=== PATIENT | male | born 1935 | race Caucasian/White ===

== ENCOUNTER 2017-08-23 18:57 | Inpatient (IN) | payer MEDICARE ==
[2017-08-23] MEDS ORDERED: IPRATROPIUM/ALBUTEROL 0.5-2.5 MG/3 ML AMPUL NEB ONE (19:05)
[2017-08-23 19:20] LABS: HEMATOCRIT 50.3 % (37.9-51.0); HEMOGLOBIN 16.2 g/dL (13.5-17.0); MEAN CORPUSCULAR HEMOGLOBIN 33.4 pg (27.0-33.4); MEAN CORPUSCULAR HGB CONC 32.2 g/dL (32.0-36.0); MEAN CORPUSCULAR VOLUME 104 fl (80-97); PLATELET COUNT 131 10^3/uL (150-450); RED BLOOD COUNT 4.86 10^6/uL (4.35-5.55); RED CELL DISTRIBUTION WIDTH 17.6 % (11.5-14.0); WHITE BLOOD COUNT 8.4 10^3/uL (4.0-10.5)
--- NOTE | 2017-08-23 19:22 | ER Document Report ---
ED General - General Stated Complaint: BREATHING PROBLEMS Time Seen by Provider: 08/23/17 19:05 Mode of Arrival: Medic Information source: Patient, Emergency Med Personnel Notes: 81-year-old male history of CHF COPD A. fib presents with complaints of shortness of breath patient denies any fevers or chills he has been short of breath for the past 5 days patient found satting 88% on room air by EMS given 1 DuoNeb one albuterol treatment in 125 Solu-Medrol prior to arrival - HPI Onset: Last week Onset/Duration: Persistent Quality of pain: No pain Severity: Moderate Pain Level: Denies Associated symptoms: Nonproductive cough, Shortness of breath Exacerbated by: Movement, Walking Relieved by: Denies Similar symptoms previously: Yes Recently seen / treated by doctor: No - Related Data Allergies/Adverse Reactions: Penicillins Allergy (Unknown, Verified 11/09/11 11:09) Past Medical History - Social History Smoking Status: Unknown if Ever Smoked Cigarette use (# per day): No Chew tobacco use (# tins/day): No Smoking Education Provided: No Family History: Reviewed & Not Pertinent - Past Medical History Cardiac Medical History: Reports: Hx Hypercholesterolemia, Hx Hypertension Endocrine Medical History: Reports: Hx Diabetes Mellitus Type 2 Review of Systems - Review of Systems Notes: REVIEW OF SYSTEMS: CONSTITUTIONAL : Denies fever, chills, or sweats. Denies recent illness. EENT: Denies eye, ear, throat, or mouth pain or symptoms. Denies nasal or sinus congestion or discharge. Denies throat, tongue, or mouth swelling or difficulty swallowing. CARDIOVASCULAR: Denies chest pain. Denies palpitations or racing or irregular heart beat. Denies ankle edema. RESPIRATORY: Admits shortness of breath difficulty breathing GASTROINTESTINAL: Denies abdominal pain or distention. Denies nausea, vomiting , or diarrhea. Denies blood in vomitus, stools, or per rectum. Denies black, tarry stools. Denies constipation. GENITOURINARY: Denies difficulty urinating, painful urination, burning, frequency, blood in urine, or discharge. MUSCULOSKELETAL: Denies back or neck pain or stiffness. Denies joint pain or swelling. SKIN: Denies rash, lesions or sores. HEMATOLOGIC : Denies easy bruising or bleeding. LYMPHATIC: Denies swollen, enlarged glands. NEUROLOGICAL: Denies confusion or altered mental status. Denies passing out or loss of consciousness. Denies dizziness or lightheadedness. Denies headache. Denies weakness or paralysis or loss of use of either side. Denies problems with gait or speech. Denies sensory loss, numbness, or tingling. Denies seizures. PSYCHIATRIC: Denies anxiety or stress. Denies depression, suicidal ideation, or homicidal ideation. ALL OTHER SYSTEMS REVIEWED AND NEGATIVE. Dictation was performed using [employer] Direct voice recognition software PHYSICAL EXAMINATION: GENERAL: Well-appearing, well-nourished and in no acute distress. HEAD: Atraumatic, normocephalic. EYES: Pupils equal round and reactive to light, extraocular movements intact, sclera anicteric, conjunctiva are normal. ENT: Nares patent, oropharynx clear without exudates. Moist mucous membranes. NECK: Normal range of motion, supple without lymphadenopathy LUNGS: Coarse inspiratory expiratory wheezing all throughout HEART: Irregular rate rhythm ABDOMEN: abdomen enlarged but not distended. Musculoskeletal: Normal range of motion, no pitting or edema. No cyanosis. NEUROLOGICAL: Cranial nerves grossly intact. Normal speech, normal gait. Normal sensory, motor exams PSYCH: Normal mood, normal affect. SKIN: Warm, Dry, normal turgor, no rashes or lesions noted. Physical Exam - Vital signs Vitals: Pulse Ox 90 L 08/23/17 19:02 Course - Re-evaluation Re-evalutation: 08/23/17 20:35 Patient's presentation most consistent with CHF COPD 08/23/17 20:36 Patient's chest x-ray notes no significant abnormality, there was elevation of the BNP 08/23/17 21:22 Patient's breathing is stable with oxygen on at rest however my concerns are when he ambulates and becomes hypoxic therefore I will observe the patient by hospitalist service for evaluation of his COPD CHF exacerbation - Vital Signs Vital signs: Temp Pulse Resp BP Pulse Ox 98.6 F 30 H 116/64 93 08/23/17 19:45 08/23/17 21:01 08/23/17 21:00 08/23/17 21:01 - Laboratory Result Diagrams: 08/23/17 19:00 08/23/17 19:00 Laboratory results interpreted by me: 08/23/17 08/23/17 08/23/17 19:00 19:00 19:00 MCV 104 H RDW 17.6 H Plt Count 131 L Sodium 149.0 H Potassium 5.4 H Carbon Dioxide 33 H BUN 41 H Creatinine 1.45 H Est GFR ( Amer) 57 L Est GFR (Non-Af Amer) 47 L Glucose 158 H NT-Pro-B Natriuret Pep 6050 H Urine Protein Urine Blood Urine Urobilinogen 08/23/17 20:01 MCV RDW Plt Count Sodium Potassium Carbon Dioxide BUN Creatinine Est GFR ( Amer) Est GFR (Non-Af Amer) Glucose NT-Pro-B Natriuret Pep Urine Protein 100 H Urine Blood SMALL H Urine Urobilinogen 2.0 H - Diagnostic Test Radiology reviewed: Image reviewed - Chest x-ray notes no significant abnormality, Reports reviewed - EKG Interpretation by Me EKG shows normal: [place], QRS Complexes, ST-T Waves Rhythm: A.Fib When compared to previous EKG there are: No significant change Discharge - Discharge Clinical Impression: Hypoxemia COPD (chronic obstructive pulmonary disease) Qualifiers: COPD type: unspecified COPD Qualified Code(s): J44.9 - Chronic obstructive pulmonary disease, unspecified CHF (congestive heart failure) Qualifiers: Heart failure type: unspecified Heart failure chronicity: unspecified Qualified Code(s): I50.9 - Heart failure, unspecified Afib Qualifiers: Atrial fibrillation type: chronic Qualified Code(s): I48.2 - Chronic atrial fibrillation Condition: Stable Disposition: ADMITTED INPATIENT Admitting Provider: Hospitalist Unit Admitted: Telemetry
--- NOTE | 2017-08-23 19:23 | RADIOLOGY REPORT (SQ) ---
EXAM DESCRIPTION: CHEST SINGLE VIEW COMPLETED DATE/TIME: 08/23/2017 7:16 pm REASON FOR STUDY: dyspnea COMPARISON: 11/09/2011 EXAM PARAMETERS: NUMBER OF VIEWS: One view. TECHNIQUE: Single frontal radiographic view of the chest acquired. RADIATION DOSE: NA LIMITATIONS: None. FINDINGS: LUNGS AND PLEURA: Stable chronic lung change without new opacities, masses or pneumothorax . No pleural effusion. MEDIASTINUM AND HILAR STRUCTURES: No masses. Contour normal. HEART AND VASCULAR STRUCTURES: Heart stable in size. Normal vasculature. BONES: No acute findings. HARDWARE: None in the chest. OTHER: No other significant finding. IMPRESSION: NO ACUTE RADIOGRAPHIC FINDING IN THE CHEST. NO SIGNIFICANT CHANGE FROM PRIOR STUDY. TECHNICAL DOCUMENTATION: JOB ID: [id number] [employer]- All Rights Reserved Reading location - IP/workstation name: [email or web address]
[2017-08-23 19:32] LABS: ALANINE AMINOTRANSFERASE 39 U/L (21-72); ALBUMIN 4.4 g/dL (3.5-5.0); ALKALINE PHOSPHATASE 66 U/L (38-126); ANION GAP 12 (5-19); ASPARTATE AMINO TRANSFERASE 39 U/L (17-59); BILIRUBIN,DIRECT 0.3 mg/dL (0.0-0.4); BILIRUBIN,TOTAL 0.5 mg/dL (0.2-1.3); BLOOD UREA NITROGEN 41 mg/dL (7-20); CALCIUM 9.6 mg/dL (8.4-10.2); CARBON DIOXIDE 33 mmol/L (22-30); CHLORIDE 104 mmol/L (98-107); CREATINE KINASE 65 U/L (55-170); GLUCOSE 158 mg/dL (75-110); POTASSIUM 5.4 mmol/L (3.6-5.0); TOTAL PROTEIN 7.8 g/dL (6.3-8.2)
[2017-08-23 19:42] LABS: ABSOLUTE LYMPHOCYTES# (MANUAL) 1.3 10^3/uL (0.5-4.7); ABSOLUTE MONOCYTES # (MANUAL) 0.7 10^3/uL (0.1-1.4); ABSOLUTE NEUTROPHILS# (MANUAL) 6.4 10^3/uL (1.7-8.2); BASOPHILS % (MANUAL) 1 % (0-2); EOSINOPHILS % (MANUAL) 0 % (0-6); LYMPHOCYTES % (MANUAL) 15 % (13-45); MONOCYTES % (MANUAL) 8 % (3-13); SEGMENTED NEUTROPHILS % (MAN) 76 % (42-78); TOTAL CELLS COUNTED 100
[2017-08-23 19:43] LABS: ANISOCYTOSIS 1+; OVALOCYTES SLIGHT; PLATELET COMMENT DECREASED; POIKILOCYTOSIS SLIGHT; POLYCHROMASIA SLIGHT
[2017-08-23 19:44] LABS: CREATINE KINASE MB 3.37 ng/mL (<4.55); TROPONIN I 0.029 ng/mL
--- NOTE | 2017-08-23 20:00 | EKG REPORT ---
SEVERITY:- ABNORMAL ECG - ATRIAL FIBRILLATION, V-RATE 61-115 RIGHT BUNDLE BRANCH BLOCK BORDERLINE ST DEPRESSION, LATERAL LEADS : Confirmed by: Freida Perez MD 23-Aug-2017 19:59:11
[2017-08-23 20:16] LABS: APPEARANCE,URINE CLEAR; BILIRUBIN,URINE NEGATIVE (NEGATIVE); COLOR,URINE YELLOW; GLUCOSE, URINE NEGATIVE (NEGATIVE); KETONES,URINE NEGATIVE (NEGATIVE); LEUKOCYTE ESTERASE,URINE NEGATIVE (NEGATIVE); NITRITE,URINE NEGATIVE (NEGATIVE); PROTEIN,URINE 100 mg/dL (NEGATIVE)
[2017-08-23] MEDS ORDERED: ONDANSETRON 4 MG TAB.RAPDIS PO PRN (21:30)
[2017-08-23] MEDS ORDERED: DOXYCYCLINE HYCLATE INJ 100 MG VIAL IV ONE (21:35)
[2017-08-23] MEDS ORDERED: FUROSEMIDE INJ/PF 40 MG/4 ML SDV IV ONE (22:15)
[2017-08-23] MEDS ORDERED: SODIUM POLYSTYRENE SULFONATE 15 GM/60 ML PO ONE (22:38)
--- NOTE | 2017-08-23 22:48 | PDOC H&P ---
History of Present Illness Admission Date/PCP: 08/23/17 21:12 History of Present Illness: SANTO EATON is a 81 year old male patient with past medical history of HLD, COPD, hypertension, diabetes mellitus, legally blind and atrial fibrillation, patient brought by EMS for shortness of breath. When EMS checked his O2 saturation it was lower 80s. I got limited history because of patient's poor historian. His initial blood work shows hyponatremia with sodium of 149, hyperkalemia potassium of 5.4 and his creatinine is 1.45 with GFR of 47. There is no report of fever chills cough chest pain palpitation or diaphoresis. Past Medical History Cardiac Medical History: Reports: Hyperlipidema, Hypertension Endocrine Medical History: Reports: Diabetes Mellitus Type 2 Social History Smoking Status: Current Every Day Smoker Frequency of Alcohol Use: None Hx Recreational Drug Use: No Drugs: None - Advance Directive Resuscitation Status: Full Code Family History Family History: Reviewed & Not Pertinent Parental Family History Reviewed: Yes Children Family History Reviewed: Yes Sibling(s) Family History Reviewed.: Yes Medication/Allergy Home Medications: Aspirin [Aspirin 325 mg Tablet] 325 mg PO DAILY 08/23/17 Losartan Potassium [Cozaar 50 mg Tablet] 50 mg PO DAILY 08/23/17 Metoprolol Tartrate [Lopressor 50 mg Tablet] 50 mg PO Q12 08/23/17 Simvastatin [Zocor 20 mg Tablet] 20 mg PO QHS 08/23/17 Allergies/Adverse Reactions: Penicillins Allergy (Unknown, Verified 11/09/11 11:09) Review of Systems Constitutional: PRESENT: as per HPI Eyes: PRESENT: as per HPI Ears: PRESENT: as per HPI Cardiovascular: PRESENT: as per HPI Respiratory: PRESENT: as per HPI Gastrointestinal: PRESENT: as per HPI Neurological: PRESENT: as per HPI Physical Exam Vital Signs: Temp Pulse Resp BP Pulse Ox 98.6 F 30 H 116/64 93 08/23/17 19:45 08/23/17 21:01 08/23/17 21:00 08/23/17 21:01 General appearance: PRESENT: disheveled, mild distress Head exam: PRESENT: atraumatic, normocephalic Neck exam: ABSENT: carotid bruit, JVD, lymphadenopathy, thyromegaly Cardiovascular exam: PRESENT: irregular rhythm GI/Abdominal exam: PRESENT: other - Obese abdomen Neurological exam: PRESENT: alert, awake Psychiatric exam: PRESENT: normal mood Results Impressions: Chest X-Ray 08/23/17 19:05 IMPRESSION: NO ACUTE RADIOGRAPHIC FINDING IN THE CHEST. NO SIGNIFICANT CHANGE FROM PRIOR STUDY. Assessment & Plan - Diagnosis (1) COPD exacerbation Is this a current diagnosis for this admission?: Yes Plan: Patient has been started on supplemental oxygen, bronchodilators and Solu- Medrol. (2) A-fib Is this a current diagnosis for this admission?: Yes Plan: Rate controlled. Patient is not on anticoagulation. (3) Type 2 diabetes mellitus Is this a current diagnosis for this admission?: Yes Plan: On sliding scale and will continue his home medications. - Inpatient Certification Medical Necessity: Need Close Monitoring Due to Risk of Patient Decompensation, Need for IV Antibiotics
[2017-08-23] MEDS: METHYLPREDNISOLONE INJ 40 MG/1 ML SDV IV SCH (22:56)
[2017-08-23] MEDS: DOXYCYCLINE HYCLATE 100 MG in DEXTROSE 5%-WATER 250 ML IV SCH (22:57)
[2017-08-23] MEDS: HEPARIN SOD (PORCINE) 5,000 UNIT/ML 1 ML SYRINGE SUBCUT SCH (22:58)
[2017-08-23] MEDS: METOPROLOL TARTRATE 50 MG TABLET PO SCH (22:58)
[2017-08-23] MEDS: SIMVASTATIN 10 MG TABLET PO SCH (22:58)
[2017-08-23] MEDS: IPRATROPIUM/ALBUTEROL 0.5-2.5 MG/3 ML AMPUL NEB SCH (23:02)
[2017-08-24] MEDS ORDERED: SODIUM POLYSTYRENE SULFONATE 15 GM/60 ML ONE (02:48)
[2017-08-24] MEDS: IPRATROPIUM/ALBUTEROL 0.5-2.5 MG/3 ML AMPUL NEB SCH ×5 (04:28→19:37)
[2017-08-24] MEDS: FUROSEMIDE INJ/PF 40 MG/4 ML SDV IV SCH ×2 (04:54→17:37)
[2017-08-24] MEDS: LANSOPRAZOLE 30 MG TAB.RAP.DR PO SCH (04:54)
[2017-08-24] MEDS: HEPARIN SOD (PORCINE) 5,000 UNIT/ML 1 ML SYRINGE SUBCUT SCH ×3 (04:54→21:27)
[2017-08-24] MEDS: METHYLPREDNISOLONE INJ 40 MG/1 ML SDV IV SCH ×2 (04:55→14:43)
[2017-08-24] MEDS ORDERED: DEXTROSE 50%-WATER SYRINGE 25 GM/50 ML DOSE IV PRN (06:45)
[2017-08-24] MEDS ORDERED: DEXTROSE 50%-WATER SYRINGE 12.5 GM/25 ML DOSE IV PRN (06:45)
[2017-08-24] MEDS ORDERED: INSULIN LISPRO 100 UNIT/ML 3 ML VIAL SUBCUT PRN (06:45)
[2017-08-24] MEDS ORDERED: DEXTROSE 40% GEL 15 GM TUBE X 2 PO PRN (06:45)
[2017-08-24] MEDS ORDERED: GLUCAGON,HUMAN RECOMB 1 MG INJ IM PRN (06:45)
[2017-08-24] MEDS ORDERED: DEXTROSE 40% GEL 15 GM TUBE PO PRN (06:45)
[2017-08-24 07:18] LABS: HEMATOCRIT 47.2 % (37.9-51.0); HEMOGLOBIN 15.4 g/dL (13.5-17.0); MEAN CORPUSCULAR HEMOGLOBIN 33.9 pg (27.0-33.4); MEAN CORPUSCULAR HGB CONC 32.6 g/dL (32.0-36.0); MEAN CORPUSCULAR VOLUME 104 fl (80-97); PLATELET COUNT 127 10^3/uL (150-450); RED BLOOD COUNT 4.53 10^6/uL (4.35-5.55); RED CELL DISTRIBUTION WIDTH 17.4 % (11.5-14.0); WHITE BLOOD COUNT 5.2 10^3/uL (4.0-10.5)
[2017-08-24 07:38] LABS: ANION GAP 13 (5-19); BLOOD UREA NITROGEN 46 mg/dL (7-20); CALCIUM 9.2 mg/dL (8.4-10.2); CARBON DIOXIDE 31 mmol/L (22-30); CHLORIDE 102 mmol/L (98-107); GLUCOSE 218 mg/dL (75-110); POTASSIUM 5.1 mmol/L (3.6-5.0); SODIUM 146.3 mmol/L (137-145)
[2017-08-24 08:00] LABS: ABSOLUTE LYMPHOCYTES# (MANUAL) 0.2 10^3/uL (0.5-4.7); ABSOLUTE MONOCYTES # (MANUAL) 0.1 10^3/uL (0.1-1.4); BAND NEUTROPHILS % (MANUAL) 1 % (3-5); BASOPHILS % (MANUAL) 0 % (0-2); EOSINOPHILS % (MANUAL) 0 % (0-6); LYMPHOCYTES % (MANUAL) 3 % (13-45); MONOCYTES % (MANUAL) 1 % (3-13); NUCLEATED RED BLOOD CELLS 1 /100 WBC (0); SEGMENTED NEUTROPHILS % (MAN) 95 % (42-78); TOTAL CELLS COUNTED 100
[2017-08-24 08:01] LABS: ANISOCYTOSIS 2+; POLYCHROMASIA SLIGHT; STOMATOCYTES SLIGHT; TOXIC GRANULATION SLIGHT
[2017-08-24 08:10] LABS: PLATELET COMMENT ADEQUATE
--- NOTE | 2017-08-24 09:02 | RADIOLOGY REPORT (SQ) ---
EXAM DESCRIPTION: CHEST SINGLE VIEW COMPLETED DATE/TIME: 08/24/2017 8:43 am REASON FOR STUDY: chf COMPARISON: 08/23/2017 EXAM PARAMETERS: NUMBER OF VIEWS: One view. TECHNIQUE: Single frontal radiographic view of the chest acquired. RADIATION DOSE: NA LIMITATIONS: None. FINDINGS: LUNGS AND PLEURA: No opacities, masses or pneumothorax. No pleural effusion. MEDIASTINUM AND HILAR STRUCTURES: No masses. Contour normal. HEART AND VASCULAR STRUCTURES: Heart normal in size. Normal vasculature. BONES: No acute findings. HARDWARE: None in the chest. OTHER: No other significant finding. IMPRESSION: NO ACUTE RADIOGRAPHIC FINDING IN THE CHEST. No radiographic evidence of congestive hear t failure. TECHNICAL DOCUMENTATION: JOB ID: [id number] [employer]- All Rights Reserved Reading location - IP/workstation name: [email or web address]
[2017-08-24] MEDS: ASPIRIN 325 MG TABLET PO SCH (11:00)
[2017-08-24] MEDS: METOPROLOL TARTRATE 50 MG TABLET PO SCH ×2 (11:00→21:49)
[2017-08-24] MEDS: LOSARTAN POTASSIUM 50 MG TABLET PO SCH (11:00)
[2017-08-24] MEDS: DOXYCYCLINE HYCLATE 100 MG in DEXTROSE 5%-WATER 250 ML IV SCH ×2 (11:00→22:06)
[2017-08-24 11:04] LABS: ARTERIAL BLOOD BASE EXCESS 3.4 mmol/L; ARTERIAL BLOOD H2CO3 2.92 mmol/L (1.05-1.35); ARTERIAL BLOOD HCO3 35.8 mmol/L (20-26); ARTERIAL BLOOD O2 SATURATION 92.2 % (94-98); ARTERIAL BLOOD TOTAL CO2 38.7 mmol/L (23-27)
[2017-08-24 11:07] LABS: ARTERIAL BLOOD FIO2 32%; ARTERIAL BLOOD PH 7.18 (7.35-7.45)
[2017-08-24 11:08] LABS: ARTERIAL BLOOD PCO2 97.1 mmHg (35-45)
[2017-08-24 16:54] LABS: ARTERIAL BLOOD BASE EXCESS 3.8 mmol/L; ARTERIAL BLOOD H2CO3 2.26 mmol/L (1.05-1.35); ARTERIAL BLOOD HCO3 33.5 mmol/L (20-26); ARTERIAL BLOOD O2 SATURATION 90.2 % (94-98); ARTERIAL BLOOD PH 7.27 (7.35-7.45); ARTERIAL BLOOD PO2 67.9 mmHg (80-100); ARTERIAL BLOOD TOTAL CO2 35.8 mmol/L (23-27)
[2017-08-24 16:55] LABS: ARTERIAL BLOOD FIO2 30%
[2017-08-24 16:58] LABS: ARTERIAL BLOOD PCO2 75.1 mmHg (35-45)
[2017-08-24] MEDS ORDERED: NORMAL SALINE 1000 ML 1,000 ML IV ONE (19:42)
[2017-08-24] MEDS ORDERED: IPRATROPIUM BROMIDE 0.02% NEB 0.5 MG/2.5 ML AMPUL NEB PRN (19:44)
[2017-08-24] MEDS ORDERED: IPRATROPIUM/ALBUTEROL 0.5-2.5 MG/3 ML AMPUL NEB PRN (19:44)
[2017-08-24] MEDS ORDERED: NORMAL SALINE 500 ML IV ONE (19:45)
[2017-08-24 19:51] LABS: ARTERIAL BLOOD BASE EXCESS 6.2 mmol/L; ARTERIAL BLOOD H2CO3 2.07 mmol/L (1.05-1.35); ARTERIAL BLOOD HCO3 34.8 mmol/L (20-26); ARTERIAL BLOOD O2 SATURATION 90.3 % (94-98); ARTERIAL BLOOD PCO2 68.7 mmHg (35-45); ARTERIAL BLOOD PH 7.32 (7.35-7.45); ARTERIAL BLOOD PO2 64.7 mmHg (80-100)
[2017-08-24 19:53] LABS: ARTERIAL BLOOD FIO2 30%
[2017-08-24] MEDS ORDERED: NORMAL SALINE 1000 ML 1,000 ML IV PRN (20:08)
[2017-08-24] MEDS ORDERED: DILTIAZEM HCL 60 MG TABLET PO ONE (20:30)
[2017-08-24] MEDS: SIMVASTATIN 10 MG TABLET PO SCH (21:49)
[2017-08-24] MEDS: LEVALBUTEROL HCL NEB 1.25 MG/3 ML AMPUL NEB SCH (23:04)
[2017-08-24] MEDS: IPRATROPIUM BROMIDE 0.02% NEB 0.5 MG/2.5 ML AMPUL NEB SCH (23:04)
[2017-08-25] MEDS: LANSOPRAZOLE 30 MG TAB.RAP.DR PO SCH (05:48)
[2017-08-25] MEDS: HEPARIN SOD (PORCINE) 5,000 UNIT/ML 1 ML SYRINGE SUBCUT SCH ×3 (05:48→21:11)
[2017-08-25 06:39] LABS: ARTERIAL BLOOD BASE EXCESS 3.8 mmol/L; ARTERIAL BLOOD FIO2 35%; ARTERIAL BLOOD H2CO3 2.06 mmol/L (1.05-1.35); ARTERIAL BLOOD HCO3 32.6 mmol/L (20-26); ARTERIAL BLOOD PCO2 68.3 mmHg (35-45); ARTERIAL BLOOD PO2 103.7 mmHg (80-100); ARTERIAL BLOOD TOTAL CO2 34.7 mmol/L (23-27)
[2017-08-25 06:41] LABS: ABSOLUTE LYMPHOCYTES (AUTO) 0.5 10^3/uL (0.5-4.7); ABSOLUTE MONOCYTES (AUTO) 1.2 10^3/uL (0.1-1.4); ABSOLUTE NEUT (AUTO) 7.5 10^3/uL (1.7-8.2); HEMATOCRIT 43.6 % (37.9-51.0); HEMOGLOBIN 14.4 g/dL (13.5-17.0); LYMPHOCYTES % (AUTO) 5.9 % (13-45); MEAN CORPUSCULAR HEMOGLOBIN 34.1 pg (27.0-33.4); MEAN CORPUSCULAR VOLUME 104 fl (80-97); MONOCYTES % (AUTO) 13.2 % (3-13); RED BLOOD COUNT 4.21 10^6/uL (4.35-5.55); RED CELL DISTRIBUTION WIDTH 17.4 % (11.5-14.0); SEGMENTED NEUTROPHILS % (AUTO) 80.9 % (42-78); TOTAL CELLS COUNTED % (AUTO) 100 %; WHITE BLOOD COUNT 9.3 10^3/uL (4.0-10.5)
[2017-08-25 06:53] LABS: ANION GAP 9 (5-19); BLOOD UREA NITROGEN 54 mg/dL (7-20); CALCIUM 8.6 mg/dL (8.4-10.2); CARBON DIOXIDE 35 mmol/L (22-30); CHLORIDE 103 mmol/L (98-107); CHOLESTEROL 99.16 mg/dL (0-200); GLUCOSE 135 mg/dL (75-110); POTASSIUM 4.9 mmol/L (3.6-5.0); SODIUM 146.9 mmol/L (137-145); TRIGLYCERIDES 117 mg/dL (<150)
[2017-08-25 07:03] LABS: DIRECT LDL 46 mg/dL (<100)
[2017-08-25 07:28] LABS: PLATELET COUNT 95 10^3/uL (150-450)
[2017-08-25] MEDS: IPRATROPIUM BROMIDE 0.02% NEB 0.5 MG/2.5 ML AMPUL NEB SCH ×3 (07:51→23:54)
[2017-08-25] MEDS: LEVALBUTEROL HCL NEB 1.25 MG/3 ML AMPUL NEB SCH ×3 (07:51→23:54)
--- NOTE | 2017-08-25 09:55 | PDOC CONSULTATION ---
Consultation Consult Date: 08/24/17 Attending physician:: YAAKOV MANNING Consult reason:: dypsnea History of Present Illness Admission Date/PCP: 08/23/17 21:12 History of Present Illness: SANTO EATON is a 81 year old male,EM's called to home for acute shotness of breath foud to have SAO2 low 80's in ED noted to be hypercapnic currrently receiving fluid bolus.HX of afib ,COPD poor historian. Past Medical History Cardiac Medical History: Reports: Hyperlipidema, Hypertension EENT Medical History: Denies: Nose Neurological Medical History: Denies: Migraine, Multiple Sclerosis Endocrine Medical History: Reports: Diabetes Mellitus Type 2, Obesity Renal/ Medical History: Denies: Nephrolithiasis GI Medical History: Denies: Crohn's Disease, Ulcerative Colitis Musculoskeltal Medical History: Denies: Fibromyalgia Psychiatric Medical History: Reports: Depression Traumatic Medical History: Denies: Traumatic Brain Injury Hematology: Denies: Hemophilia, Sickle Cell Disease Infectious Medical History: Denies: Clostridium Difficile, HIV Social History Information Source: [facility] Records Smoking Status: Current Every Day Smoker Cigarettes Packs Per Day: 1 Passive smoke exposure as: Both Frequency of Alcohol Use: None Hx Recreational Drug Use: No Drugs: None Hx Prescription Drug Abuse: No Do you have pets?: No Have you had any respiratory illnesses as a child?: No Have you been exposed to any sick contacts recently?: No Have you had any recent respiratory illnesses?: No Have you travelled outside of [place] in the past 12 months?: No - Advance Directive Resuscitation Status: Do Not Resuscitate Family History Parental Family History Reviewed: No Children Family History Reviewed: No Sibling(s) Family History Reviewed.: No Medication/Allergy Home Medications: Aspirin [Aspirin 325 mg Tablet] 325 mg PO DAILY 08/23/17 Losartan Potassium [Cozaar 50 mg Tablet] 50 mg PO DAILY 08/23/17 Metoprolol Tartrate [Lopressor 50 mg Tablet] 50 mg PO Q12 08/23/17 Simvastatin [Zocor 20 mg Tablet] 20 mg PO QHS 08/23/17 Allergies/Adverse Reactions: Penicillins Allergy (Unknown, Verified 11/09/11 11:09) Review of Systems ROS unobtainable: Due to mental status Physical Exam Vital Signs: Temp Pulse Resp BP Pulse Ox 98.4 F 99 16 80/48 L 93 08/24/17 15:52 08/24/17 19:00 08/24/17 16:17 08/24/17 15:52 08/24/17 16:17 Intake & Output 08/23/17 08/24/17 08/25/17 06:59 06:59 06:59 Intake Total 250 280 Output Total 250 225 Balance 0 55 Weight 83.8 kg General appearance: PRESENT: disheveled, mild distress, obese Head exam: PRESENT: atraumatic, normocephalic Eye exam: PRESENT: conjunctiva pale, EOMI. ABSENT: nystagmus, periorbital swelling, scleral icterus Mouth exam: PRESENT: dry mucosa, neck supple, tongue midline Neck exam: ABSENT: carotid bruit, JVD, lymphadenopathy, thyromegaly, tracheal deviation, tracheostomy Respiratory exam: PRESENT: decreased breath sounds, prolonged expiratory phas, rales, rhonchi, unlabored, wheezes. ABSENT: retraction Cardiovascular exam: PRESENT: RRR, +S1, +S2 Pulses: PRESENT: normal radial pulses GI/Abdominal exam: PRESENT: normal bowel sounds, soft Extremities exam: ABSENT: calf tenderness, clubbing Musculoskeletal exam: ABSENT: deformity, dislocation Neurological exam: PRESENT: awake, oriented to person Psychiatric exam: PRESENT: flat affect Skin exam: PRESENT: dry, warm Results Laboratory Results: 08/24/17 06:54 08/24/17 06:54 08/24/17 08/24/17 08/24/17 06:54 06:54 06:54 WBC 5.2 RBC 4.53 Hgb 15.4 Hct 47.2 MCV 104 H MCH 33.9 H MCHC 32.6 RDW 17.4 H Plt Count 127 L Seg Neutrophils % Not Reportable Lymphocytes % Not Reportable Monocytes % Not Reportable Eosinophils % Not Reportable Basophils % Not Reportable Absolute Neutrophils Not Reportable Absolute Lymphocytes Not Reportable Absolute Monocytes Not Reportable Absolute Eosinophils Not Reportable Absolute Basophils Not Reportable Carbonic Acid HCO3/H2CO3 Ratio ABG pH ABG pCO2 ABG pO2 ABG HCO3 ABG O2 Saturation ABG Base Excess FiO2 Sodium 146.3 H Potassium 5.1 H Chloride 102 Carbon Dioxide 31 H Anion Gap 13 BUN 46 H Creatinine 1.52 H Est GFR ( Amer) 54 L Est GFR (Non-Af Amer) 44 L Glucose 218 H Calcium 9.2 Phosphorus 7.1 H 06/05/18 06/05/18 06/05/18 10:50 16:45 19:40 WBC RBC Hgb Hct MCV MCH MCHC RDW Plt Count Seg Neutrophils % Lymphocytes % Monocytes % Eosinophils % Basophils % Absolute Neutrophils Absolute Lymphocytes Absolute Monocytes Absolute Eosinophils Absolute Basophils Carbonic Acid 2.92 H 2.26 H 2.07 H HCO3/H2CO3 Ratio 12:1 14:1 16:1 ABG pH 7.18 L* 7.27 L 7.32 L ABG pCO2 97.1 H* 75.1 H* 68.7 H ABG pO2 81.0 67.9 L 64.7 L ABG HCO3 35.8 H 33.5 H 34.8 H ABG O2 Saturation 92.2 L 90.2 L 90.3 L ABG Base Excess 3.4 3.8 6.2 FiO2 32% 30% 30% Sodium Potassium Chloride Carbon Dioxide Anion Gap BUN Creatinine Est GFR ( Amer) Est GFR (Non-Af Amer) Glucose Calcium Phosphorus 08/24/17 09:54 NT-Pro-B Natriuret Pep 7520 H Impressions: Chest X-Ray 08/24/17 00:00 IMPRESSION: NO ACUTE RADIOGRAPHIC FINDING IN THE CHEST. No radiographic evidence of congestive heart failure. Assessment & Plan - Diagnosis (1) Acute respiratory failure with hypoxia Is this a current diagnosis for this admission?: Yes Plan: increase bipap (2) Afib Qualifiers: Atrial fibrillation type: chronic Qualified Code(s): I48.2 - Chronic atrial fibrillation Is this a current diagnosis for this admission?: Yes Plan: stable at this time (3) COPD (chronic obstructive pulmonary disease) Qualifiers: COPD type: unspecified COPD Qualified Code(s): J44.9 - Chronic obstructive pulmonary disease, unspecified Is this a current diagnosis for this admission?: Yes Plan: LABA+LAMA+DARIN consider ICCS (4) Hypertension Is this a current diagnosis for this admission?: Yes Plan: stable (5) Hypoxemia Is this a current diagnosis for this admission?: Yes Plan: ok with bipap (6) Tobacco dependence Is this a current diagnosis for this admission?: Yes Plan: transdermal nicotine
--- NOTE | 2017-08-25 09:58 | PDOC PROGRESS REPORT ---
Subjective Progress Note for:: 08/25/17 Subjective:: slightly improved Reason For Visit: COPD EXACERBATION Physical Exam Vital Signs: Temp Pulse Resp BP Pulse Ox 98.2 F 89 12 101/64 97 08/25/17 04:00 08/25/17 07:51 08/25/17 07:51 08/25/17 04:00 08/25/17 07:51 Pulse Oximeter Continuous Start: 08/24/17 18: 55 Freq: RTQ4 Status: Active Document 08/25/17 07:51 [facility] (Rec: 08/25/17 08:09 [facility] [email or web address]) Pulse Oximetry Assessment Oxygen Saturation (92-100) 97 Oxygen Delivery Method Bi-pap Fraction of Inspired Oxygen (FIO2) 35 Equipment Usage Equipment in Use Continuous SpO2 Machine # [id number] Intake & Output 08/24/17 08/25/17 08/26/17 06:59 06:59 06:59 Intake Total 250 1530 Output Total 250 575 Balance 0 955 Weight 83.8 kg 83.8 kg General appearance: PRESENT: disheveled, mild distress, obese Head exam: PRESENT: atraumatic, normocephalic Eye exam: PRESENT: conjunctiva pale, EOMI. ABSENT: nystagmus, periorbital swelling, scleral icterus Mouth exam: PRESENT: dry mucosa, neck supple, tongue midline Neck exam: ABSENT: carotid bruit, JVD, lymphadenopathy, thyromegaly, tracheal deviation, tracheostomy Respiratory exam: PRESENT: decreased breath sounds, prolonged expiratory phas, rales, rhonchi, wheezes. ABSENT: retraction, stridor Cardiovascular exam: PRESENT: irregular rhythm, tachycardia Pulses: PRESENT: normal radial pulses GI/Abdominal exam: PRESENT: normal bowel sounds, soft Extremities exam: ABSENT: calf tenderness, clubbing Musculoskeletal exam: ABSENT: deformity, dislocation Neurological exam: PRESENT: awake, oriented to person Psychiatric exam: PRESENT: flat affect Skin exam: PRESENT: dry, warm Results Laboratory Results: 08/25/17 06:14 08/25/17 06:14 08/24/17 08/24/17 08/24/17 10:50 16:45 19:40 WBC RBC Hgb Hct MCV MCH MCHC RDW Plt Count Seg Neutrophils % Lymphocytes % Monocytes % Eosinophils % Basophils % Absolute Neutrophils Absolute Lymphocytes Absolute Monocytes Absolute Eosinophils Absolute Basophils Carbonic Acid 2.92 H 2.26 H 2.07 H HCO3/H2CO3 Ratio 12:1 14:1 16:1 ABG pH 7.18 L* 7.27 L 7.32 L ABG pCO2 97.1 H* 75.1 H* 68.7 H ABG pO2 81.0 67.9 L 64.7 L ABG HCO3 35.8 H 33.5 H 34.8 H ABG O2 Saturation 92.2 L 90.2 L 90.3 L ABG Base Excess 3.4 3.8 6.2 FiO2 32% 30% 30% Sodium Potassium Chloride Carbon Dioxide Anion Gap BUN Creatinine Est GFR ( Amer) Est GFR (Non-Af Amer) Glucose Calcium Phosphorus Magnesium Triglycerides Cholesterol LDL Cholesterol Direct VLDL Cholesterol HDL Cholesterol 08/25/17 08/25/17 08/25/17 06:14 06:14 06:14 WBC 9.3 RBC 4.21 L Hgb 14.4 Hct 43.6 MCV 104 H MCH 34.1 H MCHC 33.0 RDW 17.4 H Plt Count 95 L Seg Neutrophils % 80.9 H Lymphocytes % 5.9 L Monocytes % 13.2 H Eosinophils % 0.0 Basophils % 0.0 Absolute Neutrophils 7.5 Absolute Lymphocytes 0.5 Absolute Monocytes 1.2 Absolute Eosinophils 0.0 Absolute Basophils 0.0 Carbonic Acid HCO3/H2CO3 Ratio ABG pH ABG pCO2 ABG pO2 ABG HCO3 ABG O2 Saturation ABG Base Excess FiO2 Sodium 146.9 H Potassium 4.9 Chloride 103 Carbon Dioxide 35 H Anion Gap 9 BUN 54 H Creatinine 1.71 H Est GFR ( Amer) 47 L Est GFR (Non-Af Amer) 39 L Glucose 135 H Calcium 8.6 Phosphorus 6.5 H Magnesium 2.3 Triglycerides 117 Cholesterol 99.16 LDL Cholesterol Direct 46 VLDL Cholesterol 23.0 HDL Cholesterol 30 L 08/25/17 06:26 WBC RBC Hgb Hct MCV MCH MCHC RDW Plt Count Seg Neutrophils % Lymphocytes % Monocytes % Eosinophils % Basophils % Absolute Neutrophils Absolute Lymphocytes Absolute Monocytes Absolute Eosinophils Absolute Basophils Carbonic Acid 2.06 H HCO3/H2CO3 Ratio 15:1 ABG pH 7.30 L ABG pCO2 68.3 H ABG pO2 103.7 H ABG HCO3 32.6 H ABG O2 Saturation 97.0 ABG Base Excess 3.8 FiO2 35% Sodium Potassium Chloride Carbon Dioxide Anion Gap BUN Creatinine Est GFR ( Amer) Est GFR (Non-Af Amer) Glucose Calcium Phosphorus Magnesium Triglycerides Cholesterol LDL Cholesterol Direct VLDL Cholesterol HDL Cholesterol 08/24/17 08/25/17 09:54 06:14 NT-Pro-B Natriuret Pep 7520 H 3930 H Impressions: Chest X-Ray 08/24/17 00:00 IMPRESSION: NO ACUTE RADIOGRAPHIC FINDING IN THE CHEST. No radiographic evidence of congestive heart failure. Assessment & Plan - Diagnosis (1) Acute respiratory failure with hypoxia Is this a current diagnosis for this admission?: Yes Plan: trial AVAPS (2) Afib Qualifiers: Atrial fibrillation type: chronic Qualified Code(s): I48.2 - Chronic atrial fibrillation Is this a current diagnosis for this admission?: Yes Plan: stable at this time (3) COPD (chronic obstructive pulmonary disease) Qualifiers: COPD type: unspecified COPD Qualified Code(s): J44.9 - Chronic obstructive pulmonary disease, unspecified Is this a current diagnosis for this admission?: Yes Plan: continue current tx (4) Hypertension Is this a current diagnosis for this admission?: Yes Plan: stable (5) Hypoxemia Is this a current diagnosis for this admission?: Yes (6) Tobacco dependence Is this a current diagnosis for this admission?: Yes Plan: transdermal nicotine
[2017-08-25] MEDS: ASPIRIN 325 MG TABLET PO SCH (10:30)
[2017-08-25] MEDS: METOPROLOL TARTRATE 50 MG TABLET PO SCH ×2 (10:30→21:11)
[2017-08-25] MEDS: DOXYCYCLINE HYCLATE 100 MG in DEXTROSE 5%-WATER 250 ML IV SCH ×2 (10:35→21:11)
[2017-08-25] MEDS: LOSARTAN POTASSIUM 50 MG TABLET PO SCH (10:38)
--- NOTE | 2017-08-25 11:00 | PDOC PROGRESS REPORT ---
Subjective Progress Note for:: 08/25/17 Subjective:: Yesterday evening the patient became somewhat hypotensive. He did respond to an IV fluid challenge. Pulmonology was consulted and have adjusted his BiPAP settings. His blood gases improving. Today when I saw the patient he is mentating much better. It is difficult to understand him with the BiPAP in place. He was updated on the current plan of care and all of his questions were answered. He tells me he is not having any pain. He is quite comfortable with the BiPAP in place. Otherwise it was difficult to get a review of systems. He does state he has not had a bowel movement since possibly yesterday. Reason For Visit: COPD EXACERBATION Physical Exam Vital Signs: Temp Pulse Resp BP Pulse Ox 98.2 F 89 12 101/64 97 08/25/17 04:00 08/25/17 07:51 08/25/17 07:51 08/25/17 04:00 08/25/17 07:51 Pulse Oximeter Continuous Start: 08/24/17 18: 55 Freq: RTQ4 Status: Active Document 08/25/17 07:51 [facility] (Rec: 08/25/17 08:09 [facility] [email or web address]) Pulse Oximetry Assessment Oxygen Saturation (92-100) 97 Oxygen Delivery Method Bi-pap Fraction of Inspired Oxygen (FIO2) 35 Equipment Usage Equipment in Use Continuous SpO2 Machine # N-6 Intake & Output 08/24/17 08/25/17 08/26/17 06:59 06:59 06:59 Intake Total 250 1530 Output Total 250 575 Balance 0 955 Weight 83.8 kg 83.8 kg General appearance: PRESENT: no acute distress, obese, well-developed, well- nourished, other - He has BiPAP in place. Head exam: PRESENT: atraumatic, normocephalic Respiratory exam: PRESENT: decreased breath sounds - This was an anterior exam, wheezes Cardiovascular exam: PRESENT: irregular rhythm. ABSENT: diastolic murmur, rubs , systolic murmur, tachycardia Pulses: PRESENT: normal dorsalis pedis pul GI/Abdominal exam: PRESENT: firm, normal bowel sounds. ABSENT: distended, guarding, mass, organolmegaly, rebound, tenderness Rectal exam: PRESENT: deferred Extremities exam: PRESENT: full ROM. ABSENT: calf tenderness, clubbing, pedal edema Neurological exam: PRESENT: alert, awake, oriented to person, oriented to place , oriented to time, oriented to situation, CN II-XII grossly intact. ABSENT: motor sensory deficit Psychiatric exam: PRESENT: appropriate affect, normal mood. ABSENT: homicidal ideation, suicidal ideation Skin exam: PRESENT: dry, intact, warm. ABSENT: cyanosis, rash Results Laboratory Results: 08/25/17 06:14 08/25/17 06:14 08/24/17 08/24/17 08/24/17 10:50 16:45 19:40 WBC RBC Hgb Hct MCV MCH MCHC RDW Plt Count Seg Neutrophils % Lymphocytes % Monocytes % Eosinophils % Basophils % Absolute Neutrophils Absolute Lymphocytes Absolute Monocytes Absolute Eosinophils Absolute Basophils Carbonic Acid 2.92 H 2.26 H 2.07 H HCO3/H2CO3 Ratio 12:1 14:1 16:1 ABG pH 7.18 L* 7.27 L 7.32 L ABG pCO2 97.1 H* 75.1 H* 68.7 H ABG pO2 81.0 67.9 L 64.7 L ABG HCO3 35.8 H 33.5 H 34.8 H ABG O2 Saturation 92.2 L 90.2 L 90.3 L ABG Base Excess 3.4 3.8 6.2 FiO2 32% 30% 30% Sodium Potassium Chloride Carbon Dioxide Anion Gap BUN Creatinine Est GFR ( Amer) Est GFR (Non-Af Amer) Glucose Calcium Phosphorus Magnesium Triglycerides Cholesterol LDL Cholesterol Direct VLDL Cholesterol HDL Cholesterol 08/25/17 08/25/17 08/25/17 06:14 06:14 06:14 WBC 9.3 RBC 4.21 L Hgb 14.4 Hct 43.6 MCV 104 H MCH 34.1 H MCHC 33.0 RDW 17.4 H Plt Count 95 L Seg Neutrophils % 80.9 H Lymphocytes % 5.9 L Monocytes % 13.2 H Eosinophils % 0.0 Basophils % 0.0 Absolute Neutrophils 7.5 Absolute Lymphocytes 0.5 Absolute Monocytes 1.2 Absolute Eosinophils 0.0 Absolute Basophils 0.0 Carbonic Acid HCO3/H2CO3 Ratio ABG pH ABG pCO2 ABG pO2 ABG HCO3 ABG O2 Saturation ABG Base Excess FiO2 Sodium 146.9 H Potassium 4.9 Chloride 103 Carbon Dioxide 35 H Anion Gap 9 BUN 54 H Creatinine 1.71 H Est GFR ( Amer) 47 L Est GFR (Non-Af Amer) 39 L Glucose 135 H Calcium 8.6 Phosphorus 6.5 H Magnesium 2.3 Triglycerides 117 Cholesterol 99.16 LDL Cholesterol Direct 46 VLDL Cholesterol 23.0 HDL Cholesterol 30 L 08/25/17 06:26 WBC RBC Hgb Hct MCV MCH MCHC RDW Plt Count Seg Neutrophils % Lymphocytes % Monocytes % Eosinophils % Basophils % Absolute Neutrophils Absolute Lymphocytes Absolute Monocytes Absolute Eosinophils Absolute Basophils Carbonic Acid 2.06 H HCO3/H2CO3 Ratio 15:1 ABG pH 7.30 L ABG pCO2 68.3 H ABG pO2 103.7 H ABG HCO3 32.6 H ABG O2 Saturation 97.0 ABG Base Excess 3.8 FiO2 35% Sodium Potassium Chloride Carbon Dioxide Anion Gap BUN Creatinine Est GFR ( Amer) Est GFR (Non-Af Amer) Glucose Calcium Phosphorus Magnesium Triglycerides Cholesterol LDL Cholesterol Direct VLDL Cholesterol HDL Cholesterol 08/24/17 08/25/17 09:54 06:14 NT-Pro-B Natriuret Pep 7520 H 3930 H Impressions: Chest X-Ray 08/24/17 00:00 IMPRESSION: NO ACUTE RADIOGRAPHIC FINDING IN THE CHEST. No radiographic evidence of congestive heart failure. Assessment & Plan - Diagnosis (1) Acute respiratory failure with hypoxia and hypercapnia Is this a current diagnosis for this admission?: Yes Plan: The patient had significant hypercapnia yesterday as well as being hypoxic. He was placed on BiPAP. Currently his blood gases are improving. Dr. Mendes has been consulted and I appreciate his input. Continue BiPAP support and therapy as outlined below. (2) Acute encephalopathy Is this a current diagnosis for this admission?: Yes Plan: Secondary to hypercapnic respiratory failure. His CO2 level is coming down and he is mentating more properly today. He seems to be alert and oriented. His acute encephalopathy is resolved (3) Acute congestive heart failure Qualifiers: Heart failure type: unspecified Qualified Code(s): I50.9 - Heart failure, unspecified Is this a current diagnosis for this admission?: Yes Plan: He was initially diuresed with IV Lasix. 2D echocardiogram is pending. His Lasix was stopped yesterday when he became hypotensive. We are holding off on further diuresis. He appears to be rather euvolemic at this time. (4) COPD exacerbation Is this a current diagnosis for this admission?: Yes Plan: Continue bronchodilators and aggressive breathing treatments. Currently his steroids have been stopped. Will defer to Dr. Mendes on how to manage. (5) Acute renal failure Is this a current diagnosis for this admission?: Yes Plan: His creatinine has risen likely due to overdiuresis. His Lasix has been held. (6) Chronic atrial fibrillation Is this a current diagnosis for this admission?: Yes Plan: Currently rate controlled. Continue to keep him on a remote monitor. (7) Diabetes mellitus Is this a current diagnosis for this admission?: Yes Plan: Stable. (8) Hypertension Is this a current diagnosis for this admission?: Yes Plan: Blood pressure is improved this morning but still on the low side. Continue to monitor quite closely. (9) Hyperlipidemia Is this a current diagnosis for this admission?: Yes Plan: Lipid panel looked quite good. Continue simvastatin (10) Tobacco dependence Is this a current diagnosis for this admission?: Yes Plan: Certainly it would be in his best interest to not smoke. He has a nicotine patch in place (11) Hypernatremia Is this a current diagnosis for this admission?: Yes Plan: Stable (12) Thrombocytopenia Is this a current diagnosis for this admission?: Yes Plan: Of undetermined significance at this point. He will have a CBC drawn in the morning - Time Time Spent with patient: 25-34 minutes - Inpatient Certification Medical Necessity: Need Close Monitoring Due to Risk of Patient Decompensation, Need For Continuous Telemetry Monitoring, Need for Nebulizer Therapy and Monitoring of Response, Risk of Complication if Not Cared For in Hospital - Inpatient hospitalization remains necessary. The patient still has significantly low blood pressure and is on BiPAP support. Timing of disposition will be determined by his clinical course. He is at high risk of decompensation, Other
[2017-08-25 11:45] LABS: ARTERIAL BLOOD BASE EXCESS 4.4 mmol/L; ARTERIAL BLOOD H2CO3 2.15 mmol/L (1.05-1.35); ARTERIAL BLOOD HCO3 33.6 mmol/L (20-26); ARTERIAL BLOOD O2 SATURATION 92.8 % (94-98); ARTERIAL BLOOD PH 7.29 (7.35-7.45); ARTERIAL BLOOD PO2 74.4 mmHg (80-100); ARTERIAL BLOOD TOTAL CO2 35.8 mmol/L (23-27)
[2017-08-25 11:47] LABS: ARTERIAL BLOOD FIO2 30%; ARTERIAL BLOOD PCO2 71.4 mmHg (35-45)
[2017-08-25 16:46] LABS: ARTERIAL BLOOD BASE EXCESS 2.9 mmol/L; ARTERIAL BLOOD H2CO3 2.05 mmol/L (1.05-1.35); ARTERIAL BLOOD HCO3 31.8 mmol/L (20-26); ARTERIAL BLOOD O2 SATURATION 93.5 % (94-98); ARTERIAL BLOOD PCO2 68.2 mmHg (35-45); ARTERIAL BLOOD PH 7.29 (7.35-7.45); ARTERIAL BLOOD PO2 77.1 mmHg (80-100); ARTERIAL BLOOD TOTAL CO2 33.9 mmol/L (23-27)
[2017-08-25 16:48] LABS: ARTERIAL BLOOD FIO2 30%
--- NOTE | 2017-08-25 20:41 | XCELERA REPORT ---
[address] [address] Transthoracic Echocardiogram Report Name: SANTO EATON Age: 81 yrs Gender: Male : 1935 Patient Status: Inpatient Patient Location: [address] [place] [address] Study Date: 08/25/2017 10:04 AM Height: 65 in Weight: 184 lb BSA: 1.9 m2 Procedure: A complete two-dimensional transthoracic echocardiogram was performed (2D, M-mode, spectral and color flow Doppler). The study was technically difficult with many images being suboptimal in quality. Reason For Study: chf Ordering Physician: AMADEO SHAW Performed By: Tarsha Swenson Interpretation Summary Left ventricular systolic function is low normal. There is borderline concentric left ventricular hypertrophy. The left ventricle is grossly normal size. Doppler measurements suggest reversible restrictive left ventricular relaxation, which is associated with grade III/IV or moderate diastolic dysfunction Regional wall motion abnormalities cannot be excluded due to limited visualization. The right ventricle is mild to moderately dilated. The right ventricular systolic function is mildly reduced. The right atrium is moderately dilated. Borderline left atrial enlargement. There is no mitral valve stenosis. There is a mild amount of mitral regurgitation The aortic valve is moderately calcified There is mild aortic stenosis There is a trace amount of aortic regurgitation There is a mild amount of tricuspid regurgitation There is mild to moderate pulmonary hypertension by echo Right ventricular systolic pressure is estimated to be elevated at 50- 60mmHg. There is no pericardial effusion. MMode/2D Measurements & Calculations RVDd: 3.7 cm LVIDd: 3.9 cm FS: 32.4 % Ao root diam: 3.0 cm IVSd: 1.0 cm LVIDs: 2.7 cm EDV(Teich): 67.9 ml LVPWd: 1.0 cm ESV(Teich): 26.3 ml Ao root area: 6.9 cm2 EF(Teich): 61.3 % LA dimension: 3.8 cm LVOT diam: 2.1 cm LVOT area: 3.5 cm2 Doppler Measurements & Calculations MV E max lenard: MV P1/2t max lenard: Ao V2 max: LV V1 max P.2 cm/sec 142.6 cm/sec 172.2 cm/sec 2.6 mmHg MV A max lenard: MV P1/2t: 52.5 msec Ao max PG: LV V1 max: 34.1 cm/sec MVA(P1/2t): 4.2 cm2 11.9 mmHg 80.5 cm/sec MV E/A: 4.1 MV dec slope: GEOVANNA(V,D): 1.6 cm2 796.5 cm/sec2 MV dec time: 0.15 sec PA V2 max: TR max lenard: 49.4 cm/sec 309.5 cm/sec PA max PG: TR max P.3 mmHg 0.97 mmHg Left Ventricle The left ventricle is grossly normal size. There is borderline concentric left ventricular hypertrophy. Left ventricular systolic function is low normal. Doppler measurements suggest reversible restrictive left ventricular relaxation, which is associated with grade III/IV or moderate diastolic dysfunction. Regional wall motion abnormalities cannot be excluded due to limited visualization. Right Ventricle The right ventricle is mild to moderately dilated. There is normal right ventricular wall thickness. The right ventricular systolic function is mildly reduced. Atria The right atrium is moderately dilated. Borderline left atrial enlargement. Interarterial septum not well visualized and not well dopplered. Cannot comment on ASD/PFO presence. Mitral Valve There is mild to moderate mitral annular calcification. There is no mitral valve stenosis. There is a mild amount of mitral regurgitation. Aortic Valve The aortic valve is moderately calcified. There is mild aortic stenosis. There is a trace amount of aortic regurgitation. Tricuspid Valve The tricuspid valve is not well visualized secondary to technical limitations. There is no tricuspid stenosis. There is a mild amount of tricuspid regurgitation. There is mild to moderate pulmonary hypertension by echo. Right ventricular systolic pressure is estimated to be elevated at 50-60mmHg. Pulmonic Valve The pulmonic valve is not well visualized. Great Vessels The aortic root is not well visualized. The inferior vena cava appeared normal and decreased < 50% with respiration (RAP 10-15 mmHg). Effusions There is no pericardial effusion. : AMADEO SHAW > Christian Madden
[2017-08-25] MEDS: SIMVASTATIN 10 MG TABLET PO SCH (21:11)
[2017-08-26] MEDS: HEPARIN SOD (PORCINE) 5,000 UNIT/ML 1 ML SYRINGE SUBCUT SCH (05:03)
[2017-08-26] MEDS: LANSOPRAZOLE 30 MG TAB.RAP.DR PO SCH (05:03)
[2017-08-26 06:22] LABS: ARTERIAL BLOOD BASE EXCESS 5.8 mmol/L; ARTERIAL BLOOD H2CO3 2.17 mmol/L (1.05-1.35); ARTERIAL BLOOD HCO3 34.9 mmol/L (20-26); ARTERIAL BLOOD PO2 92.5 mmHg (80-100); ARTERIAL BLOOD TOTAL CO2 37.1 mmol/L (23-27)
[2017-08-26 06:36] LABS: ARTERIAL BLOOD FIO2 35%; ARTERIAL BLOOD PCO2 72.1 mmHg (35-45)
[2017-08-26 07:24] LABS: HEMATOCRIT 44.6 % (37.9-51.0); HEMOGLOBIN 14.7 g/dL (13.5-17.0); MEAN CORPUSCULAR HEMOGLOBIN 33.7 pg (27.0-33.4); MEAN CORPUSCULAR HGB CONC 32.9 g/dL (32.0-36.0); MEAN CORPUSCULAR VOLUME 103 fl (80-97); RED BLOOD COUNT 4.35 10^6/uL (4.35-5.55); WHITE BLOOD COUNT 6.3 10^3/uL (4.0-10.5)
[2017-08-26] MEDS: IPRATROPIUM BROMIDE 0.02% NEB 0.5 MG/2.5 ML AMPUL NEB SCH ×2 (07:33→16:12)
[2017-08-26] MEDS: LEVALBUTEROL HCL NEB 1.25 MG/3 ML AMPUL NEB SCH ×2 (07:34→16:12)
[2017-08-26 07:40] LABS: ANION GAP 9 (5-19); BLOOD UREA NITROGEN 52 mg/dL (7-20); CALCIUM 8.8 mg/dL (8.4-10.2); CARBON DIOXIDE 32 mmol/L (22-30); CHLORIDE 106 mmol/L (98-107); GLUCOSE 99 mg/dL (75-110); SODIUM 146.8 mmol/L (137-145)
[2017-08-26 07:41] LABS: PLATELET COUNT 80 10^3/uL (150-450)
[2017-08-26 08:11] LABS: ABSOLUTE LYMPHOCYTES# (MANUAL) 0.6 10^3/uL (0.5-4.7); ABSOLUTE MONOCYTES # (MANUAL) 1.1 10^3/uL (0.1-1.4); ABSOLUTE NEUTROPHILS# (MANUAL) 4.6 10^3/uL (1.7-8.2); BAND NEUTROPHILS % (MANUAL) 2 % (3-5); BASOPHILS % (MANUAL) 0 % (0-2); EOSINOPHILS % (MANUAL) 0 % (0-6); LYMPHOCYTES % (MANUAL) 10 % (13-45); MONOCYTES % (MANUAL) 17 % (3-13); PLATELET COMMENT DECREASED; SEGMENTED NEUTROPHILS % (MAN) 71 % (42-78); TOTAL CELLS COUNTED 100
[2017-08-26] MEDS: LOSARTAN POTASSIUM 50 MG TABLET PO SCH (09:26)
[2017-08-26] MEDS: ASPIRIN 325 MG TABLET PO SCH (09:26)
[2017-08-26] MEDS: METOPROLOL TARTRATE 50 MG TABLET PO SCH ×2 (09:27→23:03)
[2017-08-26] MEDS: DOXYCYCLINE HYCLATE 100 MG in DEXTROSE 5%-WATER 250 ML IV SCH ×2 (09:27→23:03)
--- NOTE | 2017-08-26 11:40 | PDOC PROGRESS REPORT ---
Subjective Progress Note for:: 08/26/17 Subjective:: Weight somewhat more alert eating breakfast Reason For Visit: COPD EXACERBATION Physical Exam Vital Signs: Temp Pulse Resp BP Pulse Ox 98.5 F 92 19 129/81 H 97 08/26/17 04:00 08/26/17 07:34 08/26/17 07:34 08/26/17 04:00 08/26/17 07:34 Pulse Oximeter Continuous Start: 08/24/17 18: 55 Freq: RTQ4 Status: Active Document 08/26/17 07:34 [facility] (Rec: 08/26/17 08:00 [facility] [email or web address]) Pulse Oximetry Assessment Oxygen Saturation (92-100) 97 Oxygen Delivery Method Bi-pap Fraction of Inspired Oxygen (FIO2) 30 Equipment Usage Equipment in Use Continuous SpO2 Machine # N-[id number] Intake & Output 08/25/17 08/26/17 08/27/17 06:59 06:59 06:59 Intake Total 1530 736 Output Total 575 850 Balance 955 -114 Weight 83.8 kg 89.2 kg General appearance: PRESENT: no acute distress, cooperative, disheveled, obese Head exam: PRESENT: atraumatic, normocephalic Eye exam: PRESENT: conjunctiva pale, EOMI. ABSENT: nystagmus, periorbital swelling, scleral icterus Mouth exam: PRESENT: dry mucosa, neck supple, tongue midline Neck exam: ABSENT: carotid bruit, JVD, lymphadenopathy, thyromegaly, tracheal deviation, tracheostomy Respiratory exam: PRESENT: decreased breath sounds, prolonged expiratory phas, rhonchi, unlabored. ABSENT: rales, retraction, stridor, wheezes Cardiovascular exam: PRESENT: RRR, +S1, +S2 Pulses: PRESENT: normal radial pulses GI/Abdominal exam: PRESENT: normal bowel sounds, soft Extremities exam: ABSENT: calf tenderness, clubbing, joint swelling Musculoskeletal exam: ABSENT: deformity, dislocation Neurological exam: PRESENT: awake, oriented to person, oriented to place, oriented to time Psychiatric exam: PRESENT: flat affect Skin exam: PRESENT: dry, warm Results Laboratory Results: 08/26/17 06:38 08/26/17 06:38 08/25/17 08/25/17 08/26/17 11:30 16:05 06:07 WBC RBC Hgb Hct MCV MCH MCHC RDW Plt Count Seg Neutrophils % Lymphocytes % Monocytes % Eosinophils % Basophils % Absolute Neutrophils Absolute Lymphocytes Absolute Monocytes Absolute Eosinophils Absolute Basophils Carbonic Acid 2.15 H 2.05 H 2.17 H HCO3/H2CO3 Ratio 15:1 15:1 16:1 ABG pH 7.29 L 7.29 L 7.30 L ABG pCO2 71.4 H* 68.2 H 72.1 H* ABG pO2 74.4 L 77.1 L 92.5 ABG HCO3 33.6 H 31.8 H 34.9 H ABG O2 Saturation 92.8 L 93.5 L 96.0 ABG Base Excess 4.4 2.9 5.8 FiO2 30% 30% 35% Sodium Potassium Chloride Carbon Dioxide Anion Gap BUN Creatinine Est GFR ( Amer) Est GFR (Non-Af Amer) Glucose Calcium Magnesium 08/26/17 08/26/17 06:38 06:38 WBC 6.3 RBC 4.35 Hgb 14.7 Hct 44.6 MCV 103 H MCH 33.7 H MCHC 32.9 RDW 17.0 H Plt Count 80 L Seg Neutrophils % Not Reportable Lymphocytes % Not Reportable Monocytes % Not Reportable Eosinophils % Not Reportable Basophils % Not Reportable Absolute Neutrophils Not Reportable Absolute Lymphocytes Not Reportable Absolute Monocytes Not Reportable Absolute Eosinophils Not Reportable Absolute Basophils Not Reportable Carbonic Acid HCO3/H2CO3 Ratio ABG pH ABG pCO2 ABG pO2 ABG HCO3 ABG O2 Saturation ABG Base Excess FiO2 Sodium 146.8 H Potassium 5.0 Chloride 106 Carbon Dioxide 32 H Anion Gap 9 BUN 52 H Creatinine 1.47 H Est GFR ( Amer) 56 L Est GFR (Non-Af Amer) 46 L Glucose 99 Calcium 8.8 Magnesium 2.3 08/24/17 08/25/17 09:54 06:14 NT-Pro-B Natriuret Pep 7520 H 3930 H Impressions: Chest X-Ray 08/24/17 00:00 IMPRESSION: NO ACUTE RADIOGRAPHIC FINDING IN THE CHEST. No radiographic evidence of congestive heart failure. Assessment & Plan - Diagnosis (1) Afib Qualifiers: Atrial fibrillation type: chronic Qualified Code(s): I48.2 - Chronic atrial fibrillation Is this a current diagnosis for this admission?: Yes Plan: stable at this time (2) COPD (chronic obstructive pulmonary disease) Qualifiers: COPD type: unspecified COPD Qualified Code(s): J44.9 - Chronic obstructive pulmonary disease, unspecified Is this a current diagnosis for this admission?: Yes Plan: continue current tx (3) Hypertension Is this a current diagnosis for this admission?: Yes Plan: stable (4) Tobacco dependence Is this a current diagnosis for this admission?: Yes Plan: transdermal nicotine (5) Acute respiratory failure with hypoxia and hypercapnia Is this a current diagnosis for this admission?: Yes Plan: The above patient has failed BiPAP. This patient would benefit from noninvasive mechanical ventilation via the trilogy AVAPS/AE and faster responding AVAPS rates. The trilogy is able to provide a target tidal volume and also adjusting the EPAP pressures to maintain a patent airway as well as an oral backup rate this machine will help improve PaCO2 levels. The severity of the patient's condition will lead to future hospitalizations and readmissions as well as life-threatening situations without the use of this device trilogy home vent needed for hypercapnic respiratory failure. [facility] or [facility] [place] to follow for trilogy set up.
--- NOTE | 2017-08-26 15:39 | PDOC PROGRESS REPORT ---
Subjective Progress Note for:: 08/26/17 Subjective:: The patient remains on BiPAP. He is quite frustrated about this. He has been told on multiple occasions what is going on but he still continues to forget. His CO2 narcosis seems to be better. He was seen by Dr. Mendes this morning who feels as if he is failed BiPAP and is in the process of trying to get him a trilogy machine. Overall it was difficult to get a good review of systems out of the Reason For Visit: COPD EXACERBATION Physical Exam Vital Signs: Temp Pulse Resp BP Pulse Ox 98.3 F 94 14 109/70 94 08/26/17 11:38 08/26/17 11:38 08/26/17 11:58 08/26/17 11:38 08/26/17 11:58 Pulse Oximeter Continuous Start: 08/24/17 18: 55 Freq: RTQ4 Status: Active Document 08/26/17 11:58 [facility] (Rec: 08/26/17 12:00 [facility] [email or web address]) Pulse Oximetry Assessment Oxygen Saturation (92-100) 94 Oxygen Delivery Method Bi-pap Fraction of Inspired Oxygen (FIO2) 30 Equipment Usage Equipment in Use Continuous SpO2 Machine # N-6 Intake & Output 08/25/17 08/26/17 08/27/17 06:59 06:59 06:59 Intake Total 1530 736 Output Total 575 850 Balance 955 -114 Weight 83.8 kg 89.2 kg General appearance: PRESENT: no acute distress, obese, well-developed, well- nourished Head exam: PRESENT: atraumatic, normocephalic Respiratory exam: PRESENT: decreased breath sounds - He is diminished in the lower bases bilaterally, wheezes. ABSENT: rales, rhonchi Cardiovascular exam: PRESENT: RRR. ABSENT: diastolic murmur, rubs, systolic murmur GI/Abdominal exam: PRESENT: normal bowel sounds, soft. ABSENT: distended, guarding, mass, organolmegaly, rebound, tenderness Rectal exam: PRESENT: deferred Extremities exam: PRESENT: full ROM. ABSENT: calf tenderness, clubbing, pedal edema Neurological exam: PRESENT: alert, awake, oriented to person, oriented to place , oriented to time, oriented to situation, CN II-XII grossly intact. ABSENT: motor sensory deficit Psychiatric exam: PRESENT: appropriate affect, normal mood. ABSENT: homicidal ideation, suicidal ideation Skin exam: PRESENT: dry, intact, warm. ABSENT: cyanosis, rash Results Laboratory Results: 08/26/17 06:38 08/26/17 06:38 08/25/17 08/26/17 08/26/17 16:05 06:07 06:38 WBC 6.3 RBC 4.35 Hgb 14.7 Hct 44.6 MCV 103 H MCH 33.7 H MCHC 32.9 RDW 17.0 H Plt Count 80 L Seg Neutrophils % Not Reportable Lymphocytes % Not Reportable Monocytes % Not Reportable Eosinophils % Not Reportable Basophils % Not Reportable Absolute Neutrophils Not Reportable Absolute Lymphocytes Not Reportable Absolute Monocytes Not Reportable Absolute Eosinophils Not Reportable Absolute Basophils Not Reportable Carbonic Acid 2.05 H 2.17 H HCO3/H2CO3 Ratio 15:1 16:1 ABG pH 7.29 L 7.30 L ABG pCO2 68.2 H 72.1 H* ABG pO2 77.1 L 92.5 ABG HCO3 31.8 H 34.9 H ABG O2 Saturation 93.5 L 96.0 ABG Base Excess 2.9 5.8 FiO2 30% 35% Sodium Potassium Chloride Carbon Dioxide Anion Gap BUN Creatinine Est GFR ( Amer) Est GFR (Non-Af Amer) Glucose Calcium Magnesium 08/26/17 06:38 WBC RBC Hgb Hct MCV MCH MCHC RDW Plt Count Seg Neutrophils % Lymphocytes % Monocytes % Eosinophils % Basophils % Absolute Neutrophils Absolute Lymphocytes Absolute Monocytes Absolute Eosinophils Absolute Basophils Carbonic Acid HCO3/H2CO3 Ratio ABG pH ABG pCO2 ABG pO2 ABG HCO3 ABG O2 Saturation ABG Base Excess FiO2 Sodium 146.8 H Potassium 5.0 Chloride 106 Carbon Dioxide 32 H Anion Gap 9 BUN 52 H Creatinine 1.47 H Est GFR ( Amer) 56 L Est GFR (Non-Af Amer) 46 L Glucose 99 Calcium 8.8 Magnesium 2.3 08/24/17 08/25/17 09:54 06:14 NT-Pro-B Natriuret Pep 7520 H 3930 H Impressions: Chest X-Ray 08/24/17 00:00 IMPRESSION: NO ACUTE RADIOGRAPHIC FINDING IN THE CHEST. No radiographic evidence of congestive heart failure. Assessment & Plan - Diagnosis (1) Acute respiratory failure with hypoxia and hypercapnia Is this a current diagnosis for this admission?: Yes Plan: Unfortunately we are unable to wean the patient off of BiPAP. Dr. Mendes is in the process of getting a trilogy machine. I am going to repeat an ABG this afternoon. Continue BiPAP support. I appreciate the assistance of Dr. Mendes (2) Acute encephalopathy Is this a current diagnosis for this admission?: Yes Plan: Secondary to CO2 narcosis. Improving (3) Acute congestive heart failure Qualifiers: Heart failure type: diastolic Qualified Code(s): I50.31 - Acute diastolic ( congestive) heart failure Is this a current diagnosis for this admission?: Yes Plan: Resolved. The patient has grade 3 diastolic dysfunction as well as some mildly reduced right sided heart failure. Currently he appears to be stable. No further Lasix. He also has mild to moderate pulmonary hypertension noted as well on his echocardiogram. (4) COPD exacerbation Is this a current diagnosis for this admission?: Yes Plan: Continue bronchodilators and aggressive breathing treatments. Currently his steroids have been stopped. Will defer to Dr. Mendes on how to manage. (5) Acute renal failure Is this a current diagnosis for this admission?: Yes Plan: Improving. This may be his baseline. (6) Chronic atrial fibrillation Is this a current diagnosis for this admission?: Yes Plan: Currently rate controlled. Continue to keep him on a remote monitor. (7) Diabetes mellitus Is this a current diagnosis for this admission?: Yes Plan: Stable. (8) Hypertension Is this a current diagnosis for this admission?: Yes (9) Hyperlipidemia Is this a current diagnosis for this admission?: Yes (10) Tobacco dependence Is this a current diagnosis for this admission?: Yes (11) Hypernatremia Is this a current diagnosis for this admission?: Yes (12) Thrombocytopenia Is this a current diagnosis for this admission?: Yes Plan: The patient's platelet level continues to decline. I am stopping his heparin that was being given for DVT prophylaxis. I placed SCDs on the patient. He will have a CBC drawn in the morning. - Time Time Spent with patient: 25-34 minutes - Inpatient Certification Medical Necessity: Other - Inpatient hospitalization remains necessary. The patient still is requiring BiPAP support. We are unable to even attempt to wean him off the BiPAP for more than just eating. Pulmonology is following. Dr. Mendes is in the process of obtaining a trilogy machine.
[2017-08-26 17:27] LABS: ARTERIAL BLOOD BASE EXCESS 5.7 mmol/L; ARTERIAL BLOOD FIO2 30%; ARTERIAL BLOOD H2CO3 2.04 mmol/L (1.05-1.35); ARTERIAL BLOOD HCO3 34.3 mmol/L (20-26); ARTERIAL BLOOD O2 SATURATION 95.9 % (94-98); ARTERIAL BLOOD PCO2 67.8 mmHg (35-45); ARTERIAL BLOOD PH 7.32 (7.35-7.45); ARTERIAL BLOOD PO2 89.5 mmHg (80-100); ARTERIAL BLOOD TOTAL CO2 36.4 mmol/L (23-27)
[2017-08-26] MEDS: SIMVASTATIN 10 MG TABLET PO SCH (23:03)
[2017-08-27] MEDS: LEVALBUTEROL HCL NEB 1.25 MG/3 ML AMPUL NEB SCH ×4 (00:02→23:55)
[2017-08-27] MEDS: IPRATROPIUM BROMIDE 0.02% NEB 0.5 MG/2.5 ML AMPUL NEB SCH ×4 (00:02→23:55)
[2017-08-27] MEDS: LANSOPRAZOLE 30 MG TAB.RAP.DR PO SCH (05:09)
[2017-08-27 07:32] LABS: ABSOLUTE LYMPHOCYTES (AUTO) 0.5 10^3/uL (0.5-4.7); ABSOLUTE MONOCYTES (AUTO) 0.8 10^3/uL (0.1-1.4); ABSOLUTE NEUT (AUTO) 3.8 10^3/uL (1.7-8.2); BASOPHILS % (AUTO) 0.3 % (0-2); EOSINOPHILS % (AUTO) 0.5 % (0-6); HEMATOCRIT 45.6 % (37.9-51.0); HEMOGLOBIN 15.1 g/dL (13.5-17.0); LYMPHOCYTES % (AUTO) 10.4 % (13-45); MEAN CORPUSCULAR HEMOGLOBIN 33.8 pg (27.0-33.4); MEAN CORPUSCULAR HGB CONC 33.2 g/dL (32.0-36.0); MEAN CORPUSCULAR VOLUME 102 fl (80-97); MONOCYTES % (AUTO) 15.3 % (3-13); RED BLOOD COUNT 4.47 10^6/uL (4.35-5.55); RED CELL DISTRIBUTION WIDTH 16.7 % (11.5-14.0); SEGMENTED NEUTROPHILS % (AUTO) 73.5 % (42-78); TOTAL CELLS COUNTED % (AUTO) 100 %; WHITE BLOOD COUNT 5.2 10^3/uL (4.0-10.5)
[2017-08-27 07:51] LABS: ANION GAP 12 (5-19); BLOOD UREA NITROGEN 38 mg/dL (7-20); CALCIUM 9.2 mg/dL (8.4-10.2); CARBON DIOXIDE 33 mmol/L (22-30); CHLORIDE 103 mmol/L (98-107); GLUCOSE 125 mg/dL (75-110); POTASSIUM 4.4 mmol/L (3.6-5.0); SODIUM 147.6 mmol/L (137-145)
[2017-08-27 08:03] LABS: PLATELET COUNT 81 10^3/uL (150-450)
[2017-08-27] MEDS: METOPROLOL TARTRATE 50 MG TABLET PO SCH ×2 (10:24→22:13)
[2017-08-27] MEDS: DOXYCYCLINE HYCLATE 100 MG in DEXTROSE 5%-WATER 250 ML IV SCH ×2 (10:24→22:13)
[2017-08-27] MEDS: LOSARTAN POTASSIUM 50 MG TABLET PO SCH (10:24)
[2017-08-27] MEDS: ASPIRIN 325 MG TABLET PO SCH (10:24)
--- NOTE | 2017-08-27 10:57 | PDOC PROGRESS REPORT ---
Subjective Progress Note for:: 08/27/17 Subjective:: Remains confused somewhat more alert Reason For Visit: COPD EXACERBATION Physical Exam Vital Signs: Temp Pulse Resp BP Pulse Ox 97.4 F 105 H 20 141/81 H 100 08/27/17 07:45 08/27/17 07:45 08/27/17 07:45 08/27/17 07:45 08/27/17 07:45 Pulse Oximeter Continuous Start: 08/24/17 18: 55 Freq: RTQ4 Status: Active Document 08/27/17 04:00 SFL (Rec: 08/27/17 04:27 SFL [email or web address]) Pulse Oximetry Assessment Oxygen Saturation (92-100) 95 Oxygen Delivery Method AVAP Fraction of Inspired Oxygen (FIO2) 30 Equipment Usage Equipment in Use Continuous SpO2 Machine # 6 Intake & Output 08/26/17 08/27/17 08/28/17 06:59 06:59 06:59 Intake Total 736 1899 Output Total 850 1275 Balance -114 624 Weight 89.2 kg 85.1 kg General appearance: PRESENT: no acute distress, disheveled Head exam: PRESENT: atraumatic, normocephalic Eye exam: PRESENT: conjunctiva pale, EOMI. ABSENT: nystagmus, periorbital swelling, scleral icterus Mouth exam: PRESENT: dry mucosa, neck supple, tongue midline Neck exam: ABSENT: carotid bruit, JVD, lymphadenopathy, thyromegaly, tracheal deviation, tracheostomy Respiratory exam: PRESENT: decreased breath sounds, prolonged expiratory phas, rhonchi, unlabored, wheezes. ABSENT: rales, retraction, stridor Cardiovascular exam: PRESENT: RRR, +S1, +S2. ABSENT: tachycardia Pulses: PRESENT: normal radial pulses GI/Abdominal exam: PRESENT: normal bowel sounds, soft Extremities exam: ABSENT: calf tenderness, clubbing Musculoskeletal exam: ABSENT: deformity, dislocation Neurological exam: PRESENT: awake, oriented to person Skin exam: PRESENT: dry, warm Results Laboratory Results: 08/27/17 07:13 08/27/17 07:13 08/26/17 08/27/17 08/27/17 16:10 07:13 07:13 WBC 5.2 RBC 4.47 Hgb 15.1 Hct 45.6 MCV 102 H MCH 33.8 H MCHC 33.2 RDW 16.7 H Plt Count 81 L Seg Neutrophils % 73.5 Lymphocytes % 10.4 L Monocytes % 15.3 H Eosinophils % 0.5 Basophils % 0.3 Absolute Neutrophils 3.8 Absolute Lymphocytes 0.5 Absolute Monocytes 0.8 Absolute Eosinophils 0.0 Absolute Basophils 0.0 Carbonic Acid 2.04 H HCO3/H2CO3 Ratio 16:1 ABG pH 7.32 L ABG pCO2 67.8 H ABG pO2 89.5 ABG HCO3 34.3 H ABG O2 Saturation 95.9 ABG Base Excess 5.7 FiO2 30% Sodium 147.6 H Potassium 4.4 Chloride 103 Carbon Dioxide 33 H Anion Gap 12 BUN 38 H Creatinine 1.15 Est GFR ( Amer) > 60 Est GFR (Non-Af Amer) > 60 Glucose 125 H Calcium 9.2 Magnesium 2.1 08/24/17 08/25/17 09:54 06:14 NT-Pro-B Natriuret Pep 7520 H 3930 H Impressions: Chest X-Ray 08/24/17 00:00 IMPRESSION: NO ACUTE RADIOGRAPHIC FINDING IN THE CHEST. No radiographic evidence of congestive heart failure. Assessment & Plan - Diagnosis (1) Afib Qualifiers: Atrial fibrillation type: chronic Qualified Code(s): I48.2 - Chronic atrial fibrillation Is this a current diagnosis for this admission?: Yes Plan: stable at this time (2) COPD (chronic obstructive pulmonary disease) Qualifiers: COPD type: unspecified COPD Qualified Code(s): J44.9 - Chronic obstructive pulmonary disease, unspecified Is this a current diagnosis for this admission?: Yes Plan: continue current tx (3) Hypertension Is this a current diagnosis for this admission?: Yes Plan: stable (4) Tobacco dependence Is this a current diagnosis for this admission?: Yes Plan: transdermal nicotine (5) Acute respiratory failure with hypoxia and hypercapnia Is this a current diagnosis for this admission?: Yes Plan: The above patient has failed BiPAP. This patient would benefit from noninvasive mechanical ventilation via the trilogy AVAPS/AE and faster responding AVAPS rates. The trilogy is able to provide a target tidal volume and also adjusting the EPAP pressures to maintain a patent airway as well as an oral backup rate this machine will help improve PaCO2 levels. The severity of the patient's condition will lead to future hospitalizations and readmissions as well as life-threatening situations without the use of this device trilogy home vent needed for hypercapnic respiratory failure. [facility] or [facility] [place] to follow for trilogy set up.
[2017-08-27 10:58] LABS: ARTERIAL BLOOD FIO2 30%; ARTERIAL BLOOD H2CO3 1.88 mmol/L (1.05-1.35); ARTERIAL BLOOD HCO3 34.8 mmol/L (20-26); ARTERIAL BLOOD O2 SATURATION 91.5 % (94-98); ARTERIAL BLOOD PCO2 62.6 mmHg (35-45); ARTERIAL BLOOD PH 7.36 (7.35-7.45); ARTERIAL BLOOD TOTAL CO2 36.7 mmol/L (23-27)
--- NOTE | 2017-08-27 16:47 | PDOC PROGRESS REPORT ---
Subjective Progress Note for:: 08/27/17 Subjective:: The patient is an 81-year-old male who presented to the emergency room with shortness of breath. He was found to be hypoxic in the emergency room and it was felt that he was having a COPD exacerbation and he was referred for admission. The patient is a poor historian and somewhat confused. It is difficult to get a clear picture of what happened. During this entire hospitalization the patient has been maintained on BiPAP. This afternoon he actually is off the BiPAP. He has intermittent confusion but overall seems greatly improved. Unfortunately we have not been able to contact any family members and it appears the patient has some friends that help take care of him in the outpatient setting. 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 Today he states his shortness of breath is improved. He is quite anxious to know when he is getting out of the hospital. He states he thought he was getting out yesterday. He denies fever chills. No chest pain or heart palpitations. No nausea vomiting or diarrhea. No urinary complaints. I am not sure how reliable the review of systems is as the patient still is quite confused Reason For Visit: COPD EXACERBATION Physical Exam Vital Signs: Temp Pulse Resp BP Pulse Ox 97.7 F 92 20 143/76 H 94 08/27/17 12:00 08/27/17 16:08 08/27/17 16:08 08/27/17 12:00 08/27/17 16:08 Pulse Oximeter Continuous Start: 08/24/17 18: 55 Freq: RTQ4 Status: Active Document 08/27/17 16:08 LDA (Rec: 08/27/17 16:12 LDA [email or web address]) Pulse Oximetry Assessment Oxygen Saturation (92-100) 94 Oxygen Flow Rate (L/min) 3 Oxygen Delivery Method Nasal Cannula Fraction of Inspired Oxygen (FIO2) 32 Equipment Usage Equipment in Use Continuous SpO2 Machine # [id number] Intake & Output 08/26/17 08/27/17 08/28/17 06:59 06:59 06:59 Intake Total 736 1899 Output Total 787 4755 Balance -114 624 Weight 89.2 kg 85.1 kg General appearance: PRESENT: no acute distress, obese, well-developed, well- nourished, other - He is receiving oxygen via nasal cannula Head exam: PRESENT: atraumatic, normocephalic Mouth exam: PRESENT: moist, tongue midline Respiratory exam: PRESENT: clear to auscultation taqueria, decreased breath sounds - He is diminished in the lower bases bilaterally but at this point his lungs sound fairly clear today, prolonged expiratory phas, rhonchi - He has some scattered rhonchi as well as a prolonged expiratory phase. ABSENT: rales, wheezes Cardiovascular exam: PRESENT: RRR. ABSENT: diastolic murmur, rubs, systolic murmur Pulses: PRESENT: normal dorsalis pedis pul GI/Abdominal exam: PRESENT: firm, normal bowel sounds, soft. ABSENT: distended , guarding, mass, organolmegaly, rebound, tenderness Rectal exam: PRESENT: deferred Extremities exam: PRESENT: full ROM. ABSENT: calf tenderness, clubbing, pedal edema Neurological exam: PRESENT: alert, awake, oriented to person, oriented to place , CN II-XII grossly intact. ABSENT: oriented to time, oriented to situation, motor sensory deficit Psychiatric exam: PRESENT: appropriate affect, normal mood. ABSENT: homicidal ideation, suicidal ideation Skin exam: PRESENT: dry, intact, warm. ABSENT: cyanosis, rash Results Laboratory Results: 08/27/17 07:13 08/27/17 07:13 08/26/17 08/27/17 08/27/17 16:10 07:13 07:13 WBC 5.2 RBC 4.47 Hgb 15.1 Hct 45.6 MCV 102 H MCH 33.8 H MCHC 33.2 RDW 16.7 H Plt Count 81 L Seg Neutrophils % 73.5 Lymphocytes % 10.4 L Monocytes % 15.3 H Eosinophils % 0.5 Basophils % 0.3 Absolute Neutrophils 3.8 Absolute Lymphocytes 0.5 Absolute Monocytes 0.8 Absolute Eosinophils 0.0 Absolute Basophils 0.0 Carbonic Acid 2.04 H HCO3/H2CO3 Ratio 16:1 ABG pH 7.32 L ABG pCO2 67.8 H ABG pO2 89.5 ABG HCO3 34.3 H ABG O2 Saturation 95.9 ABG Base Excess 5.7 FiO2 30% Sodium 147.6 H Potassium 4.4 Chloride 103 Carbon Dioxide 33 H Anion Gap 12 BUN 38 H Creatinine 1.15 Est GFR ( Amer) > 60 Est GFR (Non-Af Amer) > 60 Glucose 125 H Calcium 9.2 Magnesium 2.1 08/27/17 10:35 WBC RBC Hgb Hct MCV MCH MCHC RDW Plt Count Seg Neutrophils % Lymphocytes % Monocytes % Eosinophils % Basophils % Absolute Neutrophils Absolute Lymphocytes Absolute Monocytes Absolute Eosinophils Absolute Basophils Carbonic Acid 1.88 H HCO3/H2CO3 Ratio 18:1 ABG pH 7.36 ABG pCO2 62.6 H ABG pO2 65.0 L ABG HCO3 34.8 H ABG O2 Saturation 91.5 L ABG Base Excess 7.0 FiO2 30% Sodium Potassium Chloride Carbon Dioxide Anion Gap BUN Creatinine Est GFR ( Amer) Est GFR (Non-Af Amer) Glucose Calcium Magnesium 08/24/17 08/25/17 09:54 06:14 NT-Pro-B Natriuret Pep 7520 H 3930 H Impressions: Chest X-Ray 08/24/17 00:00 IMPRESSION: NO ACUTE RADIOGRAPHIC FINDING IN THE CHEST. No radiographic evidence of congestive heart failure. Assessment & Plan - Diagnosis (1) Acute respiratory failure with hypoxia and hypercapnia Is this a current diagnosis for this admission?: Yes Plan: The patient is still requiring oxygen. He is also requiring intermittent BiPAP support. Dr. Mendes is following efforts are underway to get the patient a trilogy machine. We need to try to find out who helps this gentleman make decisions for himself. The nursing staff is exploring this. I am not sure whether he will be able to go back to his previous living situation. I am going to have physical therapy evaluate in the morning. In the meantime we will continue aggressive breathing treatments and therapy as outlined below (2) Acute encephalopathy Is this a current diagnosis for this admission?: Yes Plan: Secondary to hypercapnic respiratory failure. The patient is still confused but much improved since the time of admission. (3) Acute congestive heart failure Qualifiers: Heart failure type: diastolic Qualified Code(s): I50.31 - Acute diastolic ( congestive) heart failure Is this a current diagnosis for this admission?: Yes Plan: Initially the patient had some mild vascular congestion and was diuresed with IV Lasix. 2D cardiac echo reveals that he has grade 3 diastolic dysfunction as well as some mild right-sided heart failure. (4) COPD exacerbation Is this a current diagnosis for this admission?: Yes Plan: The patient will continue aggressive breathing treatments. At this point his steroids have been stopped. Continue aggressive breathing treatments. Dr. Mendes is following. He also is on IV doxycycline. This is day number 5 out of 7 days of treatment. (5) Acute renal failure Is this a current diagnosis for this admission?: Yes Plan: Resolving. Initially due to overdiuresis. (6) Chronic atrial fibrillation Is this a current diagnosis for this admission?: Yes Plan: Currently marginally rate controlled. He has had heart rates in the upper 90s and low 100s. Continue metoprolol twice daily. (7) Diabetes mellitus Is this a current diagnosis for this admission?: Yes Plan: Continue current regimen. His blood sugars are adequately controlled (8) Hypertension Is this a current diagnosis for this admission?: Yes Plan: Stable (9) Hyperlipidemia Is this a current diagnosis for this admission?: Yes Plan: Continue home regimen (10) Tobacco dependence Is this a current diagnosis for this admission?: Yes Plan: Certainly would be in his best interest to quit smoking. (11) Hypernatremia Is this a current diagnosis for this admission?: Yes Plan: This is about the same. It is quite mild. He will have a chemistry panel drawn in the morning (12) Thrombocytopenia Is this a current diagnosis for this admission?: Yes Plan: Of undetermined significance at this point. The patient initially was on Lovenox for DVT prophylaxis. This is been held. His level is no worse today. - Time Time Spent with patient: 25-34 minutes - Inpatient Certification Medical Necessity: Need Close Monitoring Due to Risk of Patient Decompensation - Inpatient hospitalization remains necessary. The patient spending most of the day on BiPAP support. Today is the first day that he is spent in the amount of time off of the BiPAP. He is requiring parenteral therapies. He is in the process of getting a trilogy machine. Also we have no idea whether the patient can ambulate. Physical therapy will be consulted today as well., Need for Nebulizer Therapy and Monitoring of Response, Need for IV Antibiotics, Other
[2017-08-27] MEDS: SIMVASTATIN 10 MG TABLET PO SCH (22:13)
[2017-08-28] MEDS: LANSOPRAZOLE 30 MG TAB.RAP.DR PO SCH (05:42)
[2017-08-28] MEDS: LEVALBUTEROL HCL NEB 1.25 MG/3 ML AMPUL NEB SCH ×3 (07:43→23:20)
[2017-08-28] MEDS: IPRATROPIUM BROMIDE 0.02% NEB 0.5 MG/2.5 ML AMPUL NEB SCH ×3 (07:43→23:20)
[2017-08-28 07:55] LABS: HEMATOCRIT 44.8 % (37.9-51.0); HEMOGLOBIN 14.9 g/dL (13.5-17.0); MEAN CORPUSCULAR HEMOGLOBIN 33.9 pg (27.0-33.4); MEAN CORPUSCULAR HGB CONC 33.2 g/dL (32.0-36.0); MEAN CORPUSCULAR VOLUME 102 fl (80-97); RED CELL DISTRIBUTION WIDTH 16.8 % (11.5-14.0); WHITE BLOOD COUNT 4.6 10^3/uL (4.0-10.5)
[2017-08-28 08:11] LABS: ANION GAP 8 (5-19); BLOOD UREA NITROGEN 31 mg/dL (7-20); CALCIUM 9.3 mg/dL (8.4-10.2); CARBON DIOXIDE 38 mmol/L (22-30); CHLORIDE 101 mmol/L (98-107); GLUCOSE 108 mg/dL (75-110); PHOSPHORUS 3.1 mg/dL (2.5-4.5); SODIUM 146.7 mmol/L (137-145)
[2017-08-28 08:36] LABS: PLATELET COUNT 78 10^3/uL (150-450)
[2017-08-28 08:39] LABS: ABSOLUTE LYMPHOCYTES# (MANUAL) 0.8 10^3/uL (0.5-4.7); ABSOLUTE MONOCYTES # (MANUAL) 0.3 10^3/uL (0.1-1.4); ABSOLUTE NEUTROPHILS# (MANUAL) 3.3 10^3/uL (1.7-8.2); BASOPHILS % (MANUAL) 1 % (0-2); EOSINOPHILS % (MANUAL) 4 % (0-6); LYMPHOCYTES % (MANUAL) 17 % (13-45); MONOCYTES % (MANUAL) 7 % (3-13); SEGMENTED NEUTROPHILS % (MAN) 71 % (42-78); TOTAL CELLS COUNTED 100
[2017-08-28 08:42] LABS: ANISOCYTOSIS 1+; PLATELET COMMENT DECREASED
[2017-08-28] MEDS: DOXYCYCLINE HYCLATE 100 MG in DEXTROSE 5%-WATER 250 ML IV SCH ×2 (09:39→21:02)
[2017-08-28] MEDS: METOPROLOL TARTRATE 50 MG TABLET PO SCH ×2 (09:40→21:02)
[2017-08-28] MEDS: ASPIRIN 325 MG TABLET PO SCH (09:40)
[2017-08-28] MEDS: LOSARTAN POTASSIUM 50 MG TABLET PO SCH (09:40)
--- NOTE | 2017-08-28 14:42 | PDOC PROGRESS REPORT ---
Subjective Progress Note for:: 08/28/17 Subjective:: Patient is seen resting in bed. He is awake, alert and aware that he is in the hospital. He is aware of the year but unaware of the date or month. He continues to have periods of mild confusion. He is presently off BiPAP therapy. He denies any shortness of breath, chest pain or dyspnea at rest. He does have congested cough. He denies any nausea, vomiting or abdominal pain. He denies any significant arthralgias or myalgias. He states he wants to go home. There is presently no family at bedside. Remaining review of systems are negative. Reason For Visit: COPD EXACERBATION Physical Exam Vital Signs: Temp Pulse Resp BP Pulse Ox 98.8 F 84 22 H 144/78 H 97 08/28/17 11:21 08/28/17 11:21 08/28/17 11:21 08/28/17 11:21 08/28/17 12:00 Pulse Oximeter Continuous Start: 08/24/17 18: 55 Freq: RTQ4 Status: Active Document 08/28/17 12:00 [facility] (Rec: 08/28/17 12:15 [facility] [email or web address]) Pulse Oximetry Assessment Oxygen Saturation (92-100) 97 Oxygen Flow Rate (L/min) 2 Oxygen Delivery Method Nasal Cannula Equipment Usage Equipment in Use Continuous SpO2 Machine # 6 Intake & Output 08/27/17 08/28/17 08/29/17 06:59 06:59 06:59 Intake Total 1899 1167 Output Total 1275 1150 Balance 624 17 Weight 85.1 kg 85.1 kg General appearance: PRESENT: no acute distress, disheveled, obese, well- developed, well-nourished Head exam: PRESENT: atraumatic, normocephalic Eye exam: PRESENT: conjunctiva pink, EOMI, PERRLA. ABSENT: scleral icterus Ear exam: PRESENT: normal external ear exam Teeth exam: PRESENT: poor dentation Neck exam: ABSENT: carotid bruit, JVD, lymphadenopathy, thyromegaly Respiratory exam: PRESENT: decreased breath sounds, rhonchi, symmetrical, unlabored Cardiovascular exam: PRESENT: RRR. ABSENT: diastolic murmur, rubs, systolic murmur Pulses: PRESENT: normal carotid pulses, normal radial pulses Vascular exam: PRESENT: normal capillary refill GI/Abdominal exam: PRESENT: normal bowel sounds, soft. ABSENT: distended, guarding, mass, organolmegaly, rebound, tenderness Rectal exam: PRESENT: deferred Extremities exam: PRESENT: full ROM, +1 edema Musculoskeletal exam: PRESENT: ambulatory, full ROM, tenderness Neurological exam: PRESENT: alert, altered, awake, oriented to person, CN II- XII grossly intact Psychiatric exam: PRESENT: anxious Focused psych exam: PRESENT: restlessness Skin exam: PRESENT: dry, intact, warm. ABSENT: cyanosis, rash Results Laboratory Results: 08/28/17 07:14 08/28/17 07:14 08/28/17 08/28/17 07:14 07:14 WBC 4.6 RBC 4.40 Hgb 14.9 Hct 44.8 MCV 102 H MCH 33.9 H MCHC 33.2 RDW 16.8 H Plt Count 78 L Seg Neutrophils % Not Reportable Lymphocytes % Not Reportable Monocytes % Not Reportable Eosinophils % Not Reportable Basophils % Not Reportable Absolute Neutrophils Not Reportable Absolute Lymphocytes Not Reportable Absolute Monocytes Not Reportable Absolute Eosinophils Not Reportable Absolute Basophils Not Reportable Sodium 146.7 H Potassium 4.0 Chloride 101 Carbon Dioxide 38 H Anion Gap 8 BUN 31 H Creatinine 1.03 Est GFR ( Amer) > 60 Est GFR (Non-Af Amer) > 60 Glucose 108 Calcium 9.3 Phosphorus 3.1 Magnesium 2.1 08/24/17 08/25/17 09:54 06:14 NT-Pro-B Natriuret Pep 7520 H 3930 H Impressions: Chest X-Ray 08/24/17 00:00 IMPRESSION: NO ACUTE RADIOGRAPHIC FINDING IN THE CHEST. No radiographic evidence of congestive heart failure. Assessment & Plan - Diagnosis (1) Acute respiratory failure with hypoxia and hypercapnia Is this a current diagnosis for this admission?: Yes Plan: Patient has been on and off BIPAP. Will need post discharge. Most likely he will need at least short term rehab (2) Afib Qualifiers: Atrial fibrillation type: chronic Qualified Code(s): I48.2 - Chronic atrial fibrillation Is this a current diagnosis for this admission?: Yes Plan: Rate controlled (3) CHF (congestive heart failure) Qualifiers: Heart failure type: unspecified Heart failure chronicity: unspecified Qualified Code(s): I50.9 - Heart failure, unspecified Is this a current diagnosis for this admission?: Yes Plan: Presently appears euvolemic (4) COPD (chronic obstructive pulmonary disease) Qualifiers: COPD type: unspecified COPD Qualified Code(s): J44.9 - Chronic obstructive pulmonary disease, unspecified Is this a current diagnosis for this admission?: Yes Plan: Continue current inhalers and nebulizers (5) Diabetes mellitus Is this a current diagnosis for this admission?: Yes Plan: Continue current medications and sliding scale coverage (6) Do not resuscitate Is this a current diagnosis for this admission?: Yes (7) Hyperlipidemia Is this a current diagnosis for this admission?: Yes Plan: Continue statin (8) Hypernatremia Is this a current diagnosis for this admission?: Yes Plan: Increase water intake (9) Hypertension Is this a current diagnosis for this admission?: Yes Plan: Continue current medications (10) Thrombocytopenia Is this a current diagnosis for this admission?: Yes Plan: Stable. He was on lovenox. This has been stopped (11) Tobacco dependence Is this a current diagnosis for this admission?: Yes Plan: Counseled - Time Time Spent with patient: 25-34 minutes Total Critical Time (Minutes): 20 Medications reviewed and adjusted accordingly: Yes Anticipated discharge: Acute Rehab - Inpatient Certification Based on my medical assessment, after consideration of the patient's comorbidities, presenting symptoms, or acuity I expect that the services needed warrant INPATIENT care.: Yes I certify that my determination is in accordance with my understanding of Medicare's requirements for reasonable and necessary INPATIENT services [42 CFR 412.3e].: Yes Medical Necessity: Significant Comorbidiites Make Outpatient Treatment Too Risky , Need Close Monitoring Due to Risk of Patient Decompensation, Risk of Complication if Not Cared For in Hospital
[2017-08-28] MEDS: SIMVASTATIN 10 MG TABLET PO SCH (21:02)
[2017-08-29] MEDS: LANSOPRAZOLE 30 MG TAB.RAP.DR PO SCH (05:21)
[2017-08-29 06:51] LABS: ABSOLUTE EOSINOPHILS # (AUTO) 0.1 10^3/uL (0.0-0.6); ABSOLUTE LYMPHOCYTES (AUTO) 0.5 10^3/uL (0.5-4.7); ABSOLUTE MONOCYTES (AUTO) 0.7 10^3/uL (0.1-1.4); ABSOLUTE NEUT (AUTO) 3.4 10^3/uL (1.7-8.2); BASOPHILS % (AUTO) 0.4 % (0-2); EOSINOPHILS % (AUTO) 1.4 % (0-6); HEMOGLOBIN 15.4 g/dL (13.5-17.0); LYMPHOCYTES % (AUTO) 11.5 % (13-45); MEAN CORPUSCULAR HEMOGLOBIN 33.6 pg (27.0-33.4); MEAN CORPUSCULAR HGB CONC 33.5 g/dL (32.0-36.0); MEAN CORPUSCULAR VOLUME 100 fl (80-97); MONOCYTES % (AUTO) 13.9 % (3-13); PLATELET COUNT 71 10^3/uL (150-450); RED BLOOD COUNT 4.59 10^6/uL (4.35-5.55); RED CELL DISTRIBUTION WIDTH 16.3 % (11.5-14.0); SEGMENTED NEUTROPHILS % (AUTO) 72.8 % (42-78); TOTAL CELLS COUNTED % (AUTO) 100 %; WHITE BLOOD COUNT 4.7 10^3/uL (4.0-10.5)
[2017-08-29 07:13] LABS: ANION GAP 12 (5-19); BLOOD UREA NITROGEN 28 mg/dL (7-20); CALCIUM 9.1 mg/dL (8.4-10.2); CARBON DIOXIDE 32 mmol/L (22-30); CHLORIDE 100 mmol/L (98-107); GLUCOSE 134 mg/dL (75-110); POTASSIUM 4.1 mmol/L (3.6-5.0); SODIUM 144.4 mmol/L (137-145)
[2017-08-29] MEDS: IPRATROPIUM BROMIDE 0.02% NEB 0.5 MG/2.5 ML AMPUL NEB SCH ×3 (07:48→23:00)
[2017-08-29] MEDS: LEVALBUTEROL HCL NEB 1.25 MG/3 ML AMPUL NEB SCH ×3 (07:48→23:00)
[2017-08-29] MEDS: ASPIRIN 325 MG TABLET PO SCH (10:06)
[2017-08-29] MEDS: METOPROLOL TARTRATE 50 MG TABLET PO SCH ×2 (10:06→21:32)
[2017-08-29] MEDS: DOXYCYCLINE HYCLATE 100 MG TABLET PO SCH ×2 (10:06→21:32)
[2017-08-29] MEDS: LOSARTAN POTASSIUM 50 MG TABLET PO SCH (10:07)
--- NOTE | 2017-08-29 14:52 | PDOC PROGRESS REPORT ---
Subjective Subjective:: Patient is seen resting in bed. He is awake, alert and oriented x 3. He continues to have periods of mild confusion. He is presently off BiPAP therapy. He denies any shortness of breath, chest pain or dyspnea at rest. He does have congested cough. He denies any nausea, vomiting or abdominal pain. He denies any significant arthralgias or myalgias. He states he wants to go home. There is presently no family at bedside. Remaining review of systems are negative. Reason For Visit: COPD EXACERBATION Physical Exam Vital Signs: Temp Pulse Resp BP Pulse Ox 98.4 F 96 20 125/74 96 08/29/17 11:44 08/29/17 11:44 08/29/17 11:44 08/29/17 11:44 08/29/17 11:44 Pulse Oximeter Continuous Start: 08/24/17 18: 55 Freq: RTQ4 Status: Active Document 08/29/17 11:13 TPO (Rec: 08/29/17 11:14 TPO [email or web address]) Pulse Oximetry Assessment Oxygen Saturation (92-100) 97 Oxygen Flow Rate (L/min) 3 Oxygen Delivery Method Nasal Cannula Fraction of Inspired Oxygen (FIO2) 32 Equipment Usage Equipment Standby Continuous SpO2 Machine # 6 Intake & Output 08/28/17 08/29/17 08/30/17 06:59 06:59 06:59 Intake Total 1167 1350 Output Total 1150 1100 Balance 17 250 Weight 85.1 kg 84.2 kg General appearance: PRESENT: no acute distress, disheveled, obese, well- developed, well-nourished Head exam: PRESENT: atraumatic, normocephalic Eye exam: PRESENT: conjunctiva pink, EOMI, PERRLA. ABSENT: scleral icterus Ear exam: PRESENT: normal external ear exam Mouth exam: PRESENT: moist, tongue midline Neck exam: ABSENT: carotid bruit, JVD, lymphadenopathy, thyromegaly Respiratory exam: PRESENT: crackles - right base, decreased breath sounds, symmetrical, unlabored. ABSENT: rales, rhonchi, wheezes Cardiovascular exam: PRESENT: RRR. ABSENT: diastolic murmur, rubs, systolic murmur Pulses: PRESENT: normal dorsalis pedis pul Vascular exam: PRESENT: normal capillary refill GI/Abdominal exam: PRESENT: normal bowel sounds, soft. ABSENT: distended, guarding, mass, organolmegaly, rebound, tenderness Rectal exam: PRESENT: deferred Extremities exam: PRESENT: full ROM. ABSENT: calf tenderness, clubbing, pedal edema Musculoskeletal exam: PRESENT: ambulatory, full ROM, normal inspection Neurological exam: PRESENT: alert, awake, oriented to person, oriented to place , oriented to time, oriented to situation, CN II-XII grossly intact, other - with intermittent confusion. ABSENT: motor sensory deficit Psychiatric exam: PRESENT: appropriate affect, normal mood. ABSENT: homicidal ideation, suicidal ideation Skin exam: PRESENT: dry, intact, warm. ABSENT: cyanosis, rash Results Laboratory Results: 08/29/17 06:08 08/29/17 06:08 08/29/17 08/29/17 06:08 06:08 WBC 4.7 RBC 4.59 Hgb 15.4 Hct 46.0 MCV 100 H MCH 33.6 H MCHC 33.5 RDW 16.3 H Plt Count 71 L Seg Neutrophils % 72.8 Lymphocytes % 11.5 L Monocytes % 13.9 H Eosinophils % 1.4 Basophils % 0.4 Absolute Neutrophils 3.4 Absolute Lymphocytes 0.5 Absolute Monocytes 0.7 Absolute Eosinophils 0.1 Absolute Basophils 0.0 Sodium 144.4 Potassium 4.1 Chloride 100 Carbon Dioxide 32 H Anion Gap 12 BUN 28 H Creatinine 0.87 Est GFR ( Amer) > 60 Est GFR (Non-Af Amer) > 60 Glucose 134 H Calcium 9.1 08/24/17 08/25/17 09:54 06:14 NT-Pro-B Natriuret Pep 7520 H 3930 H Impressions: Chest X-Ray 08/24/17 00:00 IMPRESSION: NO ACUTE RADIOGRAPHIC FINDING IN THE CHEST. No radiographic evidence of congestive heart failure. Assessment & Plan - Diagnosis (1) Acute respiratory failure with hypoxia and hypercapnia Is this a current diagnosis for this admission?: Yes Plan: Patient has been on and off BIPAP. Will need post discharge. He may need home oxygen. Pulmonary is following (2) Afib Qualifiers: Atrial fibrillation type: chronic Qualified Code(s): I48.2 - Chronic atrial fibrillation Is this a current diagnosis for this admission?: Yes Plan: Rate controlled (3) CHF (congestive heart failure) Qualifiers: Heart failure type: unspecified Heart failure chronicity: unspecified Qualified Code(s): I50.9 - Heart failure, unspecified Is this a current diagnosis for this admission?: Yes Plan: Presently appears euvolemic (4) COPD (chronic obstructive pulmonary disease) Qualifiers: COPD type: unspecified COPD Qualified Code(s): J44.9 - Chronic obstructive pulmonary disease, unspecified Is this a current diagnosis for this admission?: Yes Plan: Continue current inhalers and nebulizers (5) Diabetes mellitus Is this a current diagnosis for this admission?: Yes Plan: Continue current medications and sliding scale coverage (6) Do not resuscitate Is this a current diagnosis for this admission?: Yes (7) Hyperlipidemia Is this a current diagnosis for this admission?: Yes Plan: Continue statin (8) Hypernatremia Is this a current diagnosis for this admission?: Yes Plan: Increase water intake (9) Hypertension Is this a current diagnosis for this admission?: Yes Plan: Continue current medications (10) Thrombocytopenia Is this a current diagnosis for this admission?: Yes Plan: Stable. He was on lovenox. This has been stopped (11) Tobacco dependence Is this a current diagnosis for this admission?: Yes Plan: Counseled - Time Time Spent with patient: 25-34 minutes Total Critical Time (Minutes): 15 Medications reviewed and adjusted accordingly: Yes Anticipated discharge: Home with Homehealth
[2017-08-29] MEDS: SENNOSIDES/DOCUSATE 8.6-50 MG 1 EACH TABLET PO PRN (18:01)
[2017-08-29] MEDS: SIMVASTATIN 10 MG TABLET PO SCH (21:32)
[2017-08-30] MEDS: LANSOPRAZOLE 30 MG TAB.RAP.DR PO SCH (05:55)
[2017-08-30] MEDS: SENNOSIDES/DOCUSATE 8.6-50 MG 1 EACH TABLET PO PRN (06:20)
[2017-08-30 07:36] LABS: HEMATOCRIT 46.3 % (37.9-51.0); HEMOGLOBIN 15.3 g/dL (13.5-17.0); MEAN CORPUSCULAR HEMOGLOBIN 33.3 pg (27.0-33.4); MEAN CORPUSCULAR HGB CONC 32.9 g/dL (32.0-36.0); MEAN CORPUSCULAR VOLUME 101 fl (80-97); RED BLOOD COUNT 4.58 10^6/uL (4.35-5.55); RED CELL DISTRIBUTION WIDTH 16.4 % (11.5-14.0); WHITE BLOOD COUNT 5.2 10^3/uL (4.0-10.5)
[2017-08-30] MEDS: IPRATROPIUM BROMIDE 0.02% NEB 0.5 MG/2.5 ML AMPUL NEB SCH ×3 (07:42→23:57)
[2017-08-30] MEDS: LEVALBUTEROL HCL NEB 1.25 MG/3 ML AMPUL NEB SCH ×3 (07:42→23:57)
[2017-08-30 07:57] LABS: PLATELET COUNT 76 10^3/uL (150-450)
[2017-08-30 08:49] LABS: ABSOLUTE LYMPHOCYTES# (MANUAL) 0.5 10^3/uL (0.5-4.7); ABSOLUTE MONOCYTES # (MANUAL) 0.7 10^3/uL (0.1-1.4); BASOPHILS % (MANUAL) 0 % (0-2); EOSINOPHILS % (MANUAL) 0 % (0-6); LYMPHOCYTES % (MANUAL) 9 % (13-45); MONOCYTES % (MANUAL) 13 % (3-13); SEGMENTED NEUTROPHILS % (MAN) 77 % (42-78); TOTAL CELLS COUNTED 100
[2017-08-30 08:50] LABS: OVALOCYTES 1+; PLATELET COMMENT DECREASED; PLATELET GIANT PRESENT; PLATELET LARGE PRESENT; POIKILOCYTOSIS 1+; TEAR DROP CELLS SLIGHT
[2017-08-30] MEDS: LOSARTAN POTASSIUM 50 MG TABLET PO SCH (10:14)
[2017-08-30] MEDS: ASPIRIN 325 MG TABLET PO SCH (10:14)
[2017-08-30] MEDS: METOPROLOL TARTRATE 50 MG TABLET PO SCH ×2 (10:15→23:11)
[2017-08-30] MEDS: DOXYCYCLINE HYCLATE 100 MG TABLET PO SCH ×2 (10:15→23:11)
--- NOTE | 2017-08-30 10:50 | PDOC PROGRESS REPORT ---
Subjective Progress Note for:: 08/30/17 Subjective:: confused somewhat more alert,difficulty expressing self Reason For Visit: COPD EXACERBATION Physical Exam Vital Signs: Temp Pulse Resp BP Pulse Ox 97.9 F 93 21 H 162/70 H 99 08/30/17 07:47 08/30/17 07:47 08/30/17 07:47 08/30/17 07:47 08/30/17 07:47 Pulse Oximeter Continuous Start: 08/24/17 18: 55 Freq: RTQ4 Status: Active Document 08/30/17 07:42 [facility] (Rec: 08/30/17 07:45 [facility] [email or web address]) Pulse Oximetry Assessment Oxygen Saturation (92-100) 96 Oxygen Flow Rate (L/min) 3 Oxygen Delivery Method Nasal Cannula Equipment Usage Equipment in Use Continuous SpO2 Machine # [id number] Intake & Output 08/29/17 08/30/17 08/31/17 06:59 06:59 06:59 Intake Total 1350 738 Output Total 1100 1075 Balance 250 -337 Weight 84.2 kg 84.2 kg General appearance: PRESENT: no acute distress, cooperative, disheveled, obese Head exam: PRESENT: atraumatic, normocephalic Eye exam: PRESENT: conjunctiva pale, EOMI. ABSENT: nystagmus, periorbital swelling, scleral icterus Mouth exam: PRESENT: moist, neck supple, tongue midline Neck exam: ABSENT: carotid bruit, JVD, lymphadenopathy, thyromegaly, tracheal deviation, tracheostomy Respiratory exam: PRESENT: decreased breath sounds, prolonged expiratory phas, rales, rhonchi, unlabored. ABSENT: retraction, stridor Cardiovascular exam: PRESENT: RRR, +S1, +S2 Pulses: PRESENT: normal radial pulses GI/Abdominal exam: PRESENT: normal bowel sounds, soft Extremities exam: ABSENT: calf tenderness, clubbing, joint swelling Musculoskeletal exam: ABSENT: deformity, dislocation Neurological exam: PRESENT: awake, oriented to person, oriented to place Psychiatric exam: PRESENT: flat affect Skin exam: PRESENT: dry, warm Results Laboratory Results: 08/30/17 07:06 08/29/17 06:08 08/30/17 07:06 WBC 5.2 RBC 4.58 Hgb 15.3 Hct 46.3 MCV 101 H MCH 33.3 MCHC 32.9 RDW 16.4 H Plt Count 76 L Seg Neutrophils % Not Reportable Lymphocytes % Not Reportable Monocytes % Not Reportable Eosinophils % Not Reportable Basophils % Not Reportable Absolute Neutrophils Not Reportable Absolute Lymphocytes Not Reportable Absolute Monocytes Not Reportable Absolute Eosinophils Not Reportable Absolute Basophils Not Reportable 08/24/17 08/25/17 09:54 06:14 NT-Pro-B Natriuret Pep 7520 H 3930 H Impressions: Chest X-Ray 08/24/17 00:00 IMPRESSION: NO ACUTE RADIOGRAPHIC FINDING IN THE CHEST. No radiographic evidence of congestive heart failure. Assessment & Plan - Diagnosis (1) Afib Qualifiers: Atrial fibrillation type: chronic Qualified Code(s): I48.2 - Chronic atrial fibrillation Is this a current diagnosis for this admission?: Yes Plan: stable at this time (2) COPD (chronic obstructive pulmonary disease) Qualifiers: COPD type: unspecified COPD Qualified Code(s): J44.9 - Chronic obstructive pulmonary disease, unspecified Is this a current diagnosis for this admission?: Yes Plan: continue current tx (3) Hypertension Is this a current diagnosis for this admission?: Yes Plan: stable (4) Tobacco dependence Is this a current diagnosis for this admission?: Yes Plan: transdermal nicotine (5) Acute respiratory failure with hypoxia and hypercapnia Is this a current diagnosis for this admission?: Yes Plan: The above patient has failed BiPAP. This patient would benefit from noninvasive mechanical ventilation via the trilogy AVAPS/AE and faster responding AVAPS rates. The trilogy is able to provide a target tidal volume and also adjusting the EPAP pressures to maintain a patent airway as well as an oral backup rate this machine will help improve PaCO2 levels. The severity of the patient's condition will lead to future hospitalizations and readmissions as well as life-threatening situations without the use of this device trilogy home vent needed for hypercapnic respiratory failure. [facility] or [facility] to follow for trilogy set up.
--- NOTE | 2017-08-30 14:22 | RADIOLOGY REPORT (SQ) ---
EXAM DESCRIPTION: CHEST 2 VIEWS COMPLETED DATE/TIME: 08/30/2017 1:53 pm REASON FOR STUDY: Persistent hypoxemia COMPARISON: AP CHEST FILMS 08/24/2017, 08/23/2017, 11/09/2011 EXAM PARAMETERS: NUMBER OF VIEWS: two views TECHNIQUE: Digital Frontal and Lateral radiographic views of the chest acquired. RADIATION DOSE: NA LIMITATIONS: none FINDINGS: LUNGS AND PLEURA: Blunting of the right and left posterior costophrenic sulci, likely due to small bilateral pleural effusions. Minimal right basilar airspace disease. Left lung grossly clear. No pneumothorax MEDIASTINUM AND HILAR STRUCTURES: No masses or contour abnormalities. HEART AND VASCULAR STRUCTURES: Heart normal size. No evidence for failure. BONES: No acute findings. HARDWARE: None in the chest. OTHER: No other significant finding. IMPRESSION: Small bilateral pleural effusions right greater than left. Minimal right basilar airspace disease TECHNICAL DOCUMENTATION: JOB ID: [id number] [employer]- All Rights Reserved Reading location - IP/workstation name: [email or web address]
[2017-08-30] MEDS ORDERED: ONDANSETRON 4 MG TAB.RAPDIS PO PRN (15:00)
--- NOTE | 2017-08-30 18:09 | PDOC PROGRESS REPORT ---
Subjective Progress Note for:: 08/30/17 Subjective:: Patient is seen resting in bed. He is awake and alert. He is confused to place and time at the present time. He continues to have periods of mild confusion. He is presently off BiPAP therapy. He denies any shortness of breath, chest pain or dyspnea at rest. He does have congested cough. He denies any nausea, vomiting or abdominal pain. He denies any significant arthralgias or myalgias. He states he wants to go home. He has a friend at bedside. Remaining review of systems are negative. Reason For Visit: COPD EXACERBATION Physical Exam Vital Signs: Temp Pulse Resp BP Pulse Ox 98.5 F 100 20 121/73 100 08/30/17 15:43 08/30/17 15:58 08/30/17 15:58 08/30/17 15:43 08/30/17 15:58 Pulse Oximeter Continuous Start: 08/24/17 18: 55 Freq: RTQ4 Status: Active Document 08/30/17 15:58 [facility] (Rec: 08/30/17 17:37 [facility] [email or web address]) Pulse Oximetry Assessment Oxygen Saturation (92-100) 98 Oxygen Flow Rate (L/min) 3 Oxygen Delivery Method Nasal Cannula Fraction of Inspired Oxygen (FIO2) 32 Equipment Usage Equipment in Use Continuous SpO2 Machine # N-[id number] Intake & Output 08/29/17 08/30/17 08/31/17 06:59 06:59 06:59 Intake Total 1350 738 Output Total 1100 1075 Balance 250 -337 Weight 84.2 kg 84.2 kg General appearance: PRESENT: no acute distress, obese, well-developed, well- nourished Head exam: PRESENT: atraumatic, normocephalic Eye exam: PRESENT: conjunctiva pink, EOMI, PERRLA. ABSENT: scleral icterus Ear exam: PRESENT: normal external ear exam Mouth exam: PRESENT: moist, tongue midline Teeth exam: PRESENT: poor dentation Neck exam: ABSENT: carotid bruit, JVD, lymphadenopathy, thyromegaly Respiratory exam: PRESENT: rhonchi, symmetrical, unlabored Cardiovascular exam: PRESENT: RRR. ABSENT: diastolic murmur, rubs, systolic murmur Pulses: PRESENT: normal carotid pulses, normal radial pulses Vascular exam: PRESENT: normal capillary refill GI/Abdominal exam: PRESENT: normal bowel sounds, soft. ABSENT: distended, guarding, mass, organolmegaly, rebound, tenderness Rectal exam: PRESENT: deferred Extremities exam: PRESENT: full ROM. ABSENT: calf tenderness, clubbing, pedal edema Musculoskeletal exam: PRESENT: full ROM, normal inspection Neurological exam: PRESENT: alert, altered, awake, oriented to person, CN II- XII grossly intact, other Psychiatric exam: PRESENT: appropriate affect Skin exam: PRESENT: dry, intact, warm. ABSENT: cyanosis, rash Results Laboratory Results: 08/30/17 07:06 08/29/17 06:08 08/30/17 07:06 WBC 5.2 RBC 4.58 Hgb 15.3 Hct 46.3 MCV 101 H MCH 33.3 MCHC 32.9 RDW 16.4 H Plt Count 76 L Seg Neutrophils % Not Reportable Lymphocytes % Not Reportable Monocytes % Not Reportable Eosinophils % Not Reportable Basophils % Not Reportable Absolute Neutrophils Not Reportable Absolute Lymphocytes Not Reportable Absolute Monocytes Not Reportable Absolute Eosinophils Not Reportable Absolute Basophils Not Reportable 08/24/17 08/25/17 09:54 06:14 NT-Pro-B Natriuret Pep 7520 H 3930 H Impressions: Chest X-Ray 08/30/17 00:00 IMPRESSION: Small bilateral pleural effusions right greater than left. Minimal right basilar airspace disease Assessment & Plan - Diagnosis (1) Acute respiratory failure with hypoxia and hypercapnia Is this a current diagnosis for this admission?: Yes Plan: Patient has been on and off the will need post discharge. He will need oxygen post discharge. He will need short-term rehab at the least. He can be discharged once that is obtained with continuous oxygen and trilogy bedtime. Pulmonary is following (2) Afib Qualifiers: Atrial fibrillation type: chronic Qualified Code(s): I48.2 - Chronic atrial fibrillation Is this a current diagnosis for this admission?: Yes Plan: Rate controlled (3) CHF (congestive heart failure) Qualifiers: Heart failure type: unspecified Heart failure chronicity: unspecified Qualified Code(s): I50.9 - Heart failure, unspecified Is this a current diagnosis for this admission?: Yes Plan: Presently appears euvolemic (4) COPD (chronic obstructive pulmonary disease) Qualifiers: COPD type: unspecified COPD Qualified Code(s): J44.9 - Chronic obstructive pulmonary disease, unspecified Is this a current diagnosis for this admission?: Yes Plan: Continue current inhalers and nebulizers (5) Diabetes mellitus Is this a current diagnosis for this admission?: Yes Plan: Continue current medications and sliding scale coverage (6) Do not resuscitate Is this a current diagnosis for this admission?: Yes (7) Hyperlipidemia Is this a current diagnosis for this admission?: Yes Plan: Continue statin (8) Hypernatremia Is this a current diagnosis for this admission?: Yes Plan: Increase water intake (9) Hypertension Is this a current diagnosis for this admission?: Yes Plan: Continue current medications (10) Thrombocytopenia Is this a current diagnosis for this admission?: Yes Plan: Stable. He was on lovenox. This has been stopped (11) Tobacco dependence Is this a current diagnosis for this admission?: Yes Plan: Counseled - Time Time Spent with patient: 25-34 minutes Total Critical Time (Minutes): 20 Medications reviewed and adjusted accordingly: Yes Anticipated discharge: SNF Within: when bed available - Inpatient Certification Based on my medical assessment, after consideration of the patient's comorbidities, presenting symptoms, or acuity I expect that the services needed warrant INPATIENT care.: Yes I certify that my determination is in accordance with my understanding of Medicare's requirements for reasonable and necessary INPATIENT services [42 CFR 412.3e].: Yes Medical Necessity: Significant Comorbidiites Make Outpatient Treatment Too Risky , Need Close Monitoring Due to Risk of Patient Decompensation, Need for Nebulizer Therapy and Monitoring of Response
[2017-08-30] MEDS: SIMVASTATIN 10 MG TABLET PO SCH (23:10)
[2017-08-31] MEDS: LANSOPRAZOLE 30 MG TAB.RAP.DR PO SCH (06:15)
[2017-08-31 07:04] LABS: HEMATOCRIT 47.2 % (37.9-51.0); HEMOGLOBIN 15.8 g/dL (13.5-17.0); MEAN CORPUSCULAR HEMOGLOBIN 33.9 pg (27.0-33.4); MEAN CORPUSCULAR HGB CONC 33.6 g/dL (32.0-36.0); MEAN CORPUSCULAR VOLUME 101 fl (80-97); RED BLOOD COUNT 4.67 10^6/uL (4.35-5.55); RED CELL DISTRIBUTION WIDTH 16.4 % (11.5-14.0); WHITE BLOOD COUNT 5.4 10^3/uL (4.0-10.5)
[2017-08-31 07:29] LABS: PLATELET COUNT 77 10^3/uL (150-450)
[2017-08-31 07:32] LABS: ANION GAP 9 (5-19); BLOOD UREA NITROGEN 27 mg/dL (7-20); CARBON DIOXIDE 36 mmol/L (22-30); CHLORIDE 100 mmol/L (98-107); GLUCOSE 111 mg/dL (75-110); POTASSIUM 4.2 mmol/L (3.6-5.0); SODIUM 145.2 mmol/L (137-145)
[2017-08-31 07:48] LABS: CALCIUM 8.9 mg/dL (8.4-10.2)
[2017-08-31 08:05] LABS: ABSOLUTE LYMPHOCYTES# (MANUAL) 0.4 10^3/uL (0.5-4.7); ABSOLUTE MONOCYTES # (MANUAL) 0.3 10^3/uL (0.1-1.4); ABSOLUTE NEUTROPHILS# (MANUAL) 4.6 10^3/uL (1.7-8.2); BAND NEUTROPHILS % (MANUAL) 6 % (3-5); BASOPHILS % (MANUAL) 0 % (0-2); EOSINOPHILS % (MANUAL) 1 % (0-6); LYMPHOCYTES % (MANUAL) 5 % (13-45); METAMYELOCYTES % (MANUAL) 1 % (0); MONOCYTES % (MANUAL) 6 % (3-13); SEGMENTED NEUTROPHILS % (MAN) 78 % (42-78); TOTAL CELLS COUNTED 100
[2017-08-31 08:07] LABS: PLATELET COMMENT DECREASED; PLATELET GIANT PRESENT; PLATELET LARGE PRESENT; TOXIC VACUOLATION PRESENT
[2017-08-31] MEDS: IPRATROPIUM BROMIDE 0.02% NEB 0.5 MG/2.5 ML AMPUL NEB SCH ×2 (08:11→16:28)
[2017-08-31] MEDS: LEVALBUTEROL HCL NEB 1.25 MG/3 ML AMPUL NEB SCH ×2 (08:11→16:28)
--- NOTE | 2017-08-31 09:57 | PDOC PROGRESS REPORT ---
Subjective Progress Note for:: 08/31/17 Subjective:: confused somewhat more alert Reason For Visit: COPD EXACERBATION Physical Exam Vital Signs: Temp Pulse Resp BP Pulse Ox 97.6 F 100 16 132/85 H 97 08/31/17 07:55 08/31/17 07:55 08/31/17 07:55 08/31/17 07:55 08/31/17 07:55 Pulse Oximeter Continuous Start: 08/24/17 18: 55 Freq: RTQ4 Status: Active Document 08/31/17 04:15 [facility] (Rec: 08/31/17 04:29 [facility] [email or web address]) Pulse Oximetry Assessment Oxygen Saturation (92-100) 97 Oxygen Flow Rate (L/min) 3 Oxygen Delivery Method Nasal Cannula Fraction of Inspired Oxygen (FIO2) 32 Equipment Usage Equipment in Use Continuous SpO2 Machine # 6 Intake & Output 08/30/17 08/31/17 09/01/17 06:59 06:59 06:59 Intake Total 738 502 Output Total 1075 375 Balance -337 127 Weight 84.2 kg 84.2 kg General appearance: PRESENT: no acute distress, disheveled, obese Head exam: PRESENT: atraumatic, normocephalic Eye exam: PRESENT: conjunctiva pale, EOMI. ABSENT: nystagmus, periorbital swelling, scleral icterus Mouth exam: PRESENT: moist, neck supple, tongue midline Neck exam: ABSENT: carotid bruit, JVD, lymphadenopathy, thyromegaly, tracheal deviation, tracheostomy Respiratory exam: PRESENT: decreased breath sounds, prolonged expiratory phas, rhonchi, unlabored, wheezes. ABSENT: rales, retraction, stridor Cardiovascular exam: PRESENT: RRR, +S1, +S2, tachycardia Pulses: PRESENT: normal radial pulses GI/Abdominal exam: PRESENT: normal bowel sounds, soft Extremities exam: ABSENT: clubbing, joint swelling Musculoskeletal exam: ABSENT: ambulatory Neurological exam: PRESENT: awake, oriented to person, oriented to place. ABSENT: oriented to time, oriented to situation Psychiatric exam: PRESENT: flat affect Skin exam: PRESENT: dry, warm Results Laboratory Results: 08/31/17 06:06 08/31/17 06:06 08/31/17 08/31/17 06:06 06:06 WBC 5.4 RBC 4.67 Hgb 15.8 Hct 47.2 MCV 101 H MCH 33.9 H MCHC 33.6 RDW 16.4 H Plt Count 77 L Seg Neutrophils % Not Reportable Lymphocytes % Not Reportable Monocytes % Not Reportable Eosinophils % Not Reportable Basophils % Not Reportable Absolute Neutrophils Not Reportable Absolute Lymphocytes Not Reportable Absolute Monocytes Not Reportable Absolute Eosinophils Not Reportable Absolute Basophils Not Reportable Sodium 145.2 H Potassium 4.2 Chloride 100 Carbon Dioxide 36 H Anion Gap 9 BUN 27 H Creatinine 1.01 Est GFR ( Amer) > 60 Est GFR (Non-Af Amer) > 60 Glucose 111 H Calcium 8.9 08/24/17 08/25/17 09:54 06:14 NT-Pro-B Natriuret Pep 7520 H 3930 H Impressions: Chest X-Ray 08/30/17 00:00 IMPRESSION: Small bilateral pleural effusions right greater than left. Minimal right basilar airspace disease Assessment & Plan - Diagnosis (1) Afib Qualifiers: Atrial fibrillation type: chronic Qualified Code(s): I48.2 - Chronic atrial fibrillation Is this a current diagnosis for this admission?: Yes Plan: stable at this time (2) COPD (chronic obstructive pulmonary disease) Qualifiers: COPD type: unspecified COPD Qualified Code(s): J44.9 - Chronic obstructive pulmonary disease, unspecified Is this a current diagnosis for this admission?: Yes Plan: continue current tx (3) Hypertension Is this a current diagnosis for this admission?: Yes Plan: stable (4) Tobacco dependence Is this a current diagnosis for this admission?: Yes Plan: transdermal nicotine (5) Acute respiratory failure with hypoxia and hypercapnia Is this a current diagnosis for this admission?: Yes Plan: The above patient has failed BiPAP. This patient would benefit from noninvasive mechanical ventilation via the trilogy AVAPS/AE and faster responding AVAPS rates. The trilogy is able to provide a target tidal volume and also adjusting the EPAP pressures to maintain a patent airway as well as an oral backup rate this machine will help improve PaCO2 levels. The severity of the patient's condition will lead to future hospitalizations and readmissions as well as life-threatening situations without the use of this device trilogy home vent needed for hypercapnic respiratory failure. [facility] or [facility] to follow for trilogy set up.
[2017-08-31] MEDS: DOXYCYCLINE HYCLATE 100 MG TABLET PO SCH ×2 (11:49→22:16)
[2017-08-31] MEDS: ASPIRIN 325 MG TABLET PO SCH (11:49)
[2017-08-31] MEDS: LOSARTAN POTASSIUM 50 MG TABLET PO SCH (11:50)
[2017-08-31] MEDS: METOPROLOL TARTRATE 50 MG TABLET PO SCH ×2 (11:50→22:16)
[2017-08-31] MEDS: SIMVASTATIN 10 MG TABLET PO SCH (22:17)
[2017-09-01] MEDS: IPRATROPIUM BROMIDE 0.02% NEB 0.5 MG/2.5 ML AMPUL NEB SCH ×4 (01:00→23:47)
[2017-09-01] MEDS: LEVALBUTEROL HCL NEB 1.25 MG/3 ML AMPUL NEB SCH ×4 (01:01→23:47)
[2017-09-01] MEDS: LANSOPRAZOLE 30 MG TAB.RAP.DR PO SCH (06:20)
[2017-09-01] MEDS: DOXYCYCLINE HYCLATE 100 MG TABLET PO SCH ×2 (10:24→22:03)
[2017-09-01] MEDS: ASPIRIN 325 MG TABLET PO SCH (10:25)
[2017-09-01] MEDS: METOPROLOL TARTRATE 50 MG TABLET PO SCH ×2 (10:25→22:02)
[2017-09-01] MEDS: LOSARTAN POTASSIUM 50 MG TABLET PO SCH (10:25)
--- NOTE | 2017-09-01 12:24 | PDOC TRANSFER SUMMARY ---
General Admission Date/PCP: 08/23/17 21:12 Admission Date: 08/23/17 Transfer Date: 09/01/17 Resuscitation Status: Do Not Resuscitate - Transfer Diagnosis (1) Acute respiratory failure with hypoxia and hypercapnia Is this a current diagnosis for this admission?: Yes (2) Acute congestive heart failure Is this a current diagnosis for this admission?: Yes (3) Acute encephalopathy Is this a current diagnosis for this admission?: Yes (4) COPD (chronic obstructive pulmonary disease) Is this a current diagnosis for this admission?: Yes (5) Do not resuscitate Is this a current diagnosis for this admission?: Yes (6) Hyperlipidemia Is this a current diagnosis for this admission?: Yes (7) Type 2 diabetes mellitus Is this a current diagnosis for this admission?: Yes - Transfer Medications Home Medications: Aspirin [Aspirin 325 mg Tablet] 325 mg PO DAILY 08/23/17 Losartan Potassium [Cozaar 50 mg Tablet] 50 mg PO DAILY 08/23/17 Metoprolol Tartrate [Lopressor 50 mg Tablet] 50 mg PO Q12 08/23/17 Simvastatin [Zocor 20 mg Tablet] 20 mg PO QHS 08/23/17 Transfer Medications: Current Medications Albuterol/Ipratropium (Duoneb 3 Ml Ampul) 3 ml NEB [id number] PRN PRN Reason: SHORTNESS OF BREATH Stop: 09/23/17 19:43 Aspirin (Aspirin 325 Mg Tablet) 325 mg PO DAILY [facility] Stop: 09/23/17 09:59 Last Admin: 09/01/17 10:25 Dose: 325 mg Dextrose (Dextrose Inj 50% Syringe (25 Gm/50 Ml)) 12.5 gm IV PRN PRN; Protocol PRN Reason: FOR BG 50-69 IN ALERT PATIENT Stop: 09/23/17 06:44 Dextrose (Dextrose Inj 50% Syringe (25 Gm/50 Ml)) 25 gm IV PRN PRN PRN Reason: Protocol Stop: 09/23/17 06:44 Doxycycline Hyclate (Vibramycin 100 Mg Tablet) 100 mg PO Q12 [place] Stop: 09/05/17 09:59 Last Admin: 09/01/17 10:24 Dose: 100 mg Glucagon (Glucagen Inj 1 Mg Vial) 1 mg IM PRN PRN; Protocol PRN Reason: EVALUATE FOR BG < 70 Stop: 09/23/17 06:44 Glucose (Glutose 40% Gel 15 Gm Tube) 15 gm PO PRN PRN; Protocol PRN Reason: FOR BG 50-69 IN ALERT PATIENT Stop: 09/23/17 06:44 Glucose (Glutose 40% Gel 15 Gm Tube) 30 gm PO PRN PRN; Protocol PRN Reason: FOR BG < 50 IN ALERT PATIENT Stop: 09/23/17 06:44 Insulin Human Lispro (Humalog Insulin 100 Unit/1 Ml 3 Ml Vial) 0 - 12 unit SUBCUT ACHSP PRN PRN Reason: Protocol Stop: 09/23/17 06:44 Last Admin: 08/30/17 11:43 Dose: 2 unit Ipratropium [place] (Atrovent 0.02% Neb 0.5 Mg/2.5 Ml Ampul) 0.5 mg NEB RTQ8 [facility] Stop: 09/24/17 00:00 Last Admin: 09/01/17 07:49 Dose: 0.5 mg Lansoprazole (Prevacid 30 Mg Odt Tablet) 30 mg PO Q6AM [facility] Stop: 09/23/17 05:59 Last Admin: 09/01/17 06:20 Dose: 30 mg Levalbuterol HCl (Xopenex Neb 1.25 Mg/3 Ml Ampul) 1.25 mg NEB RTQ8 [facility] Stop: 09/24/17 00:00 Last Admin: 09/01/17 07:49 Dose: 1.25 mg Losartan Potassium (Cozaar 50 Mg Tablet) 50 mg PO DAILY [facility] Stop: 09/23/17 09:59 Last Admin: 09/01/17 10:25 Dose: 50 mg Metoprolol Tartrate (Lopressor 50 Mg Tablet) 50 mg PO Q12 [facility] Stop: 09/22/17 21:59 Last Admin: 09/01/17 10:25 Dose: 50 mg Ondansetron HCl (Zofran Odt 4 Mg Tablet) 4 mg PO Q8HP PRN PRN Reason: FOR NAUSEA/VOMITING Stop: 09/22/17 21:29 Senna/Docusate Sodium (Senna Plus Tablet) 2 each PO BIDP PRN PRN Reason: constipation Stop: 09/28/17 12:09 Last Admin: 08/30/17 06:20 Dose: 2 each Simvastatin (Zocor 10 Mg Tablet) 20 mg PO QHS [facility] Stop: 09/22/17 21:59 Last Admin: 08/31/17 22:17 Dose: 20 mg - Allergies Allergies/Adverse Reactions: Penicillins Allergy (Unknown, Verified 11/09/11 11:09) - Diet/Activity Discharge Diet: Cardiac Discharge Activity: Activity As Tolerated Hospital Course Hospital Course: SANTO EATON is a 81 y.o. M who was admitted for a COPD exacerbation. He has a past medical history of HLD, COPD, hypertension, diabetes mellitus, legally blind and atrial fibrillation. The patient was treated with steroids, nebulizers and empiric antibiotics for acute bronchitis. Early on during his hospital stay, the patient required continuous BIPAP due to his respiratory failure. The patient was also experiencing acute on chronic exacerbation of his CHF, initial BNP 6000+. This could likely have contributed to his presenting symptoms of shortness of breath. Early chest xrays showed mild vascular congestion, he was diuresed with IV Lasix. 2D cardiac echo revealed that the patient has grade 3 diastolic dysfunction as well as some mild right-sided heart failure. BNP trended down to 2000 within a few days of initiating diuretics. Pulmonary was consulted because the patient was requiring multiple days of BIPAP therapy, Dr. Mendes recommended the Trilogy AVAPS. Discharge planning was able to obtain the noninvasive ventilator for the patient. According to Dr. Mendes, this patient would benefit from noninvasive mechanical ventilation via the trilogy AVAPS/AE and faster responding AVAPS rates. The trilogy is able to provide a target tidal volume and also adjusting the EPAP pressures to maintain a patent airway as well as an oral backup rate this machine will help improve PaCO2 levels. The severity of the patient's condition will lead to future hospitalizations and readmissions as well as life-threatening situations without the use of this device trilogy home vent needed for hypercapnic respiratory failure. After 9 days at [facility], the patient is now medically cleared for discharge. He was weaned off BIPAP days ago. The decision was made to send him to acute rehab given his overall physical debilitation and inability to care for himself. No changes were made to his home medications. In addition to his current regimen, the patient will also start on advair and spiriva inhalers. He will need to follow up with e/m engineer, Dr. Mendes within 2 weeks of discharge from the hospital. For further details regarding this hospital stay, please refer to the patient's chart Physical Exam Vital Signs: Temp Pulse Resp BP Pulse Ox 97.9 F 90 20 117/61 98 09/01/17 08:26 09/01/17 08:26 09/01/17 08:26 09/01/17 08:26 09/01/17 07:49 Pulse Oximeter Continuous Start: 08/24/17 18: 55 Freq: RTQ4 Status: Active Document 09/01/17 07:49 [facility] (Rec: 09/01/17 08:15 DS [email or web address]) Pulse Oximetry Assessment Oxygen Saturation (92-100) 98 Oxygen Delivery Method Bi-pap Fraction of Inspired Oxygen (FIO2) 30 Equipment Usage Equipment in Use Continuous SpO2 Machine # 6 Intake & Output 08/31/17 09/01/17 09/02/17 06:59 06:59 06:59 Intake Total 502 1305 Output Total 375 785 Balance 127 520 Weight 84.2 kg 84.2 kg Results Laboratory Results: 08/31/17 06:06 08/31/17 06:06 08/24/17 08/25/17 09:54 06:14 NT-Pro-B Natriuret Pep 7520 H 3930 H Impressions: Chest X-Ray 08/30/17 00:00 IMPRESSION: Small bilateral pleural effusions right greater than left. Minimal right basilar airspace disease Status: Imported from PACS Plan [facility] Time Spent: Less than 30 Minutes
--- NOTE | 2017-09-01 13:32 | PDOC PROGRESS REPORT ---
Subjective Progress Note for:: 09/01/17 Subjective:: Sitting on the side of the bed with a SaO2 of 85% Without oxygen or NIPPV Reason For Visit: COPD EXACERBATION Physical Exam Vital Signs: Temp Pulse Resp BP Pulse Ox 98.3 F 102 H 20 95/45 L 97 09/01/17 10:37 09/01/17 10:37 09/01/17 10:37 09/01/17 10:37 09/01/17 12:00 Pulse Oximeter Continuous Start: 08/24/17 18: 55 Freq: RTQ4 Status: Active Document 09/01/17 12:00 [facility] (Rec: 09/01/17 12:43 [facility] [email or web address]) Pulse Oximetry Assessment Oxygen Saturation (92-100) 97 Oxygen Flow Rate (L/min) 2 Oxygen Delivery Method Nasal Cannula Equipment Usage Equipment in Use Continuous SpO2 Machine # 6 Intake & Output 08/31/17 09/01/17 09/02/17 06:59 06:59 06:59 Intake Total 502 1305 Output Total 375 785 Balance 127 520 Weight 84.2 kg 84.2 kg General appearance: PRESENT: no acute distress, cooperative, disheveled, obese, well-developed, well-nourished Head exam: PRESENT: atraumatic, normocephalic Eye exam: PRESENT: conjunctiva pale, EOMI. ABSENT: nystagmus, periorbital swelling, scleral icterus Mouth exam: PRESENT: dry mucosa, neck supple, tongue midline Neck exam: ABSENT: carotid bruit, JVD, lymphadenopathy, thyromegaly, tracheal deviation, tracheostomy Respiratory exam: PRESENT: decreased breath sounds, prolonged expiratory phas, rales, rhonchi. ABSENT: retraction, stridor, unlabored Cardiovascular exam: PRESENT: RRR, +S1, +S2 Pulses: PRESENT: normal radial pulses GI/Abdominal exam: PRESENT: normal bowel sounds, soft Gentrourinary exam: PRESENT: indwelling catheter Extremities exam: ABSENT: calf tenderness, clubbing, joint swelling Musculoskeletal exam: ABSENT: deformity, dislocation Neurological exam: PRESENT: awake, oriented to person, oriented to place Skin exam: PRESENT: dry, warm Results Laboratory Results: 08/31/17 06:06 08/31/17 06:06 08/24/17 08/25/17 09:54 06:14 NT-Pro-B Natriuret Pep 7520 H 3930 H Impressions: Chest X-Ray 08/30/17 00:00 IMPRESSION: Small bilateral pleural effusions right greater than left. Minimal right basilar airspace disease Assessment & Plan - Diagnosis (1) Afib Qualifiers: Atrial fibrillation type: chronic Qualified Code(s): I48.2 - Chronic atrial fibrillation Is this a current diagnosis for this admission?: Yes Plan: stable at this time (2) COPD (chronic obstructive pulmonary disease) Qualifiers: COPD type: unspecified COPD Qualified Code(s): J44.9 - Chronic obstructive pulmonary disease, unspecified Is this a current diagnosis for this admission?: Yes Plan: continue current tx (3) Hypertension Is this a current diagnosis for this admission?: Yes Plan: stable (4) Tobacco dependence Is this a current diagnosis for this admission?: Yes Plan: transdermal nicotine (5) Acute respiratory failure with hypoxia and hypercapnia Is this a current diagnosis for this admission?: Yes Plan: ipap16 epap8 RR12 FIO2 35% trilogy at home not allowed in [place]
[2017-09-01] MEDS: SIMVASTATIN 10 MG TABLET PO SCH (22:03)
[2017-09-02] MEDS: LANSOPRAZOLE 30 MG TAB.RAP.DR PO SCH (06:03)
[2017-09-02] MEDS: IPRATROPIUM BROMIDE 0.02% NEB 0.5 MG/2.5 ML AMPUL NEB SCH ×2 (07:53→16:11)
[2017-09-02] MEDS: LEVALBUTEROL HCL NEB 1.25 MG/3 ML AMPUL NEB SCH ×2 (07:53→16:11)
--- NOTE | 2017-09-02 11:28 | PDOC PROGRESS REPORT ---
Subjective Progress Note for:: 09/02/17 Subjective:: SaO2 of 91% With oxygen Reason For Visit: COPD EXACERBATION Physical Exam Vital Signs: Temp Pulse Resp BP Pulse Ox 98.2 F 94 18 141/88 H 100 09/02/17 08:07 09/02/17 08:07 09/02/17 08:07 09/02/17 08:07 09/02/17 08:07 Pulse Oximeter Continuous Start: 08/24/17 18: 55 Freq: RTQ4 Status: Active Document 09/02/17 07:53 [facility] (Rec: 09/02/17 08:14 [facility] [email or web address]) Pulse Oximetry Assessment Oxygen Saturation (92-100) 95 Oxygen Flow Rate (L/min) 2 Oxygen Delivery Method Nasal Cannula Equipment Usage Equipment in Use Continuous SpO2 Machine # 6 Intake & Output 09/01/17 09/02/17 09/03/17 06:59 06:59 06:59 Intake Total 1305 940 Output Total 785 800 Balance 520 140 Weight 84.2 kg 86.1 kg General appearance: PRESENT: no acute distress, cooperative, disheveled, obese Head exam: PRESENT: atraumatic, normocephalic Eye exam: PRESENT: conjunctiva pale, EOMI. ABSENT: nystagmus, periorbital swelling, scleral icterus Mouth exam: PRESENT: dry mucosa, neck supple, tongue midline Neck exam: ABSENT: carotid bruit, JVD, lymphadenopathy, thyromegaly, tracheal deviation, tracheostomy Respiratory exam: PRESENT: decreased breath sounds, prolonged expiratory phas, wheezes Cardiovascular exam: PRESENT: RRR, +S1, +S2 Pulses: PRESENT: normal radial pulses GI/Abdominal exam: PRESENT: normal bowel sounds, soft Gentrourinary exam: PRESENT: indwelling catheter Extremities exam: ABSENT: calf tenderness, clubbing, joint swelling Musculoskeletal exam: ABSENT: deformity, dislocation Neurological exam: PRESENT: awake, oriented to person, oriented to place Psychiatric exam: PRESENT: flat affect Skin exam: PRESENT: dry, warm Results Laboratory Results: 08/31/17 06:06 08/31/17 06:06 08/24/17 08/25/17 09:54 06:14 NT-Pro-B Natriuret Pep 7520 H 3930 H Impressions: Chest X-Ray 08/30/17 00:00 IMPRESSION: Small bilateral pleural effusions right greater than left. Minimal right basilar airspace disease Assessment & Plan - Diagnosis (1) Afib Qualifiers: Atrial fibrillation type: chronic Qualified Code(s): I48.2 - Chronic atrial fibrillation Is this a current diagnosis for this admission?: Yes Plan: stable at this time (2) COPD (chronic obstructive pulmonary disease) Qualifiers: COPD type: unspecified COPD Qualified Code(s): J44.9 - Chronic obstructive pulmonary disease, unspecified Is this a current diagnosis for this admission?: Yes Plan: continue current tx (3) Hypertension Is this a current diagnosis for this admission?: Yes Plan: stable (4) Tobacco dependence Is this a current diagnosis for this admission?: Yes Plan: transdermal nicotine (5) Acute respiratory failure with hypoxia and hypercapnia Is this a current diagnosis for this admission?: Yes Plan: Bipap I=16 E=8 FIO2=.35
[2017-09-02] MEDS: ASPIRIN 325 MG TABLET PO SCH (12:11)
[2017-09-02] MEDS: DOXYCYCLINE HYCLATE 100 MG TABLET PO SCH (12:12)
[2017-09-02] MEDS: METOPROLOL TARTRATE 50 MG TABLET PO SCH (12:12)
[2017-09-02] MEDS: LOSARTAN POTASSIUM 50 MG TABLET PO SCH (12:12)
[2017-09-02 15:42] VITALS: BP 122/71
== END 2017-09-02 19:11 | DRG 190 ==
LOC: ER 18:57 → EH 21:12 → 5 08-24 00:47
PROVIDERS: ADMIT Internal Medicine; ATTEND Internal Medicine
PROC: 3E0F73Z Introduction of Anti-inflammatory into Respiratory Tract, Via Natural or Artificial Opening (ICD-10-PCS; 2017-08-23)
PROC: 5A09457 Assistance with Respiratory Ventilation, 24-96 Consecutive Hours, Continuous Positive Airway Pressure (ICD-10-PCS; principal; 2017-08-24)
DX: J44.1 Chronic obstructive pulmonary disease with (acute) exacerbation (principal); J96.01 Acute respiratory failure with hypoxia; J96.02 Acute respiratory failure with hypercapnia; I50.33 Acute on chronic diastolic (congestive) heart failure; N17.9 Acute kidney failure, unspecified; E87.0 Hyperosmolality and hypernatremia; Z66 Do not resuscitate; E78.00 Pure hypercholesterolemia, unspecified; E11.9 Type 2 diabetes mellitus without complications; H54.8 Legal blindness, as defined in USA; I11.0 Hypertensive heart disease with heart failure; E66.9 Obesity, unspecified; Z68.31 Body mass index [BMI] 31.0-31.9, adult; F32.9 Major depressive disorder, single episode, unspecified; F17.210 Nicotine dependence, cigarettes, uncomplicated; I48.2 Chronic atrial fibrillation; D69.6 Thrombocytopenia, unspecified; Z79.82 Long term (current) use of aspirin; Z88.0 Allergy status to penicillin; Z79.899 Other long term (current) drug therapy
CPT/HCPCS: 36415; 36600; 71045; 71046; 80048; 80053; 80061; 81001; 82550; 82553; 82803; 82962; 83036; 83735; 83880; 84100; 84484; 85025; 87040; 93005; 93010; 93306; 94640; 94660; 94762; 99285; G8978-GP; G8979-GP; J1644; J1815; J1940; J2920; J3490; J7030; J7060; J7620

== ENCOUNTER 2017-12-24 14:27 | Emergency (ER) | payer MEDICARE ==
--- NOTE | 2017-12-24 15:01 | ER Document Report ---
ED Medical Screen (RME) - General Chief Complaint: General Weakness Stated Complaint: WEAKNESS,SHORT OF BREATH Time Seen by Provider: 12/24/17 14:53 Notes: 82-year-old male patient comes emergency room for weakness and shortness of breath started last night. He states the shortness of breath is made worse with exertion. He has had increased urination and increased thirst. He has been running blood sugars in the 340 range. He did consume a lot of food or fluids with salt last night. Today his abdomen feels a little distended and he feels like his extremities are swelling some. In speaking with the patient he states he has never been on medication for diabetes, and that after his admission here in August 2017, he did well, had weight loss, never took diabetes medicine. I have greeted and performed a rapid initial assessment of this patient. A comprehensive ED assessment and evaluation of the patient, analysis of test results and completion of the medical decision making process will be conducted by additional ED providers. TRAVEL OUTSIDE OF THE [place] IN LAST 30 DAYS: No - Related Data Allergies/Adverse Reactions: Penicillins Allergy (Unknown, Verified 12/24/17 14:27) Past Medical History - Past Medical History Cardiac Medical History: Reports: Hx Hypercholesterolemia, Hx Hypertension Neurological Medical History: Denies: Hx Migraine Endocrine Medical History: Reports: Hx Diabetes Mellitus Type 2 Renal/ Medical History: Denies: Hx Peritoneal Dialysis GI Medical History: Denies: Hx Crohn's Disease, Hx Ulcerative Colitis Musculoskeltal Medical History: Denies Hx Fibromyalgia Psychiatric Medical History: Reports: Hx Depression Traumatic Medical History: Denies: Hx Traumatic Brain Injury Infectious Medical History: Denies: Hx C-Diff, Hx HIV - Immunizations History of Influenza Vaccine for 12/2016 - 05/2017 Season: Refused Physical Exam - Vital signs Vitals: Temp Pulse Resp BP Pulse Ox 98.6 F 81 20 142/69 H 98 12/24/17 14:34 12/24/17 14:34 12/24/17 14:34 12/24/17 14:34 12/24/17 14:34 Course - Vital Signs Vital signs: Temp Pulse Resp BP Pulse Ox 98.6 F 81 20 142/69 H 98 12/24/17 14:34 12/24/17 14:34 12/24/17 14:34 12/24/17 14:34 12/24/17 14:34 Doctor's Discharge - Discharge Referrals: ARLEN NIELSEN MD [Primary Care Provider] - Follow up as needed
[2017-12-24 15:27] LABS: ABSOLUTE LYMPHOCYTES (AUTO) 0.8 10^3/uL (0.5-4.7); ABSOLUTE NEUT (AUTO) 6.1 10^3/uL (1.7-8.2); BASOPHILS % (AUTO) 0.2 % (0-2); EOSINOPHILS % (AUTO) 0.4 % (0-6); HEMATOCRIT 43.4 % (37.9-51.0); HEMOGLOBIN 14.6 g/dL (13.5-17.0); LYMPHOCYTES % (AUTO) 10.3 % (13-45); MEAN CORPUSCULAR HEMOGLOBIN 33.5 pg (27.0-33.4); MEAN CORPUSCULAR HGB CONC 33.6 g/dL (32.0-36.0); MEAN CORPUSCULAR VOLUME 100 fl (80-97); MONOCYTES % (AUTO) 12.3 % (3-13); PLATELET COUNT 129 10^3/uL (150-450); RED BLOOD COUNT 4.34 10^6/uL (4.35-5.55); RED CELL DISTRIBUTION WIDTH 16.1 % (11.5-14.0); SEGMENTED NEUTROPHILS % (AUTO) 76.8 % (42-78); TOTAL CELLS COUNTED % (AUTO) 100 %
[2017-12-24 15:50] LABS: ALANINE AMINOTRANSFERASE 38 U/L (21-72); ALBUMIN 4.4 g/dL (3.5-5.0); ALKALINE PHOSPHATASE 63 U/L (38-126); ANION GAP 10 (5-19); ASPARTATE AMINO TRANSFERASE 39 U/L (17-59); BILIRUBIN,DIRECT 0.4 mg/dL (0.0-0.4); BILIRUBIN,TOTAL 0.7 mg/dL (0.2-1.3); BLOOD UREA NITROGEN 30 mg/dL (7-20); CALCIUM 9.7 mg/dL (8.4-10.2); CARBON DIOXIDE 27 mmol/L (22-30); CHLORIDE 106 mmol/L (98-107); CREATINE KINASE 83 U/L (55-170); GLUCOSE 268 mg/dL (75-110); POTASSIUM 4.9 mmol/L (3.6-5.0); TOTAL PROTEIN 7.6 g/dL (6.3-8.2)
--- NOTE | 2017-12-24 16:01 | RADIOLOGY REPORT (SQ) ---
EXAM DESCRIPTION: CHEST 2 VIEWS COMPLETED DATE/TIME: 12/24/2017 3:19 pm REASON FOR STUDY: Short of breath, dyspnea on exertion COMPARISON: Chest films 08/30/2017, 08/24/2017, 08/23/2017 EXAM PARAMETERS: NUMBER OF VIEWS: two views TECHNIQUE: Digital Frontal and Lateral radiographic views of the chest acquired. RADIATION DOSE: NA LIMITATIONS: none FINDINGS: LUNGS AND PLEURA: No acute infiltrates. Trace left pleural effusion, smaller than on 08/30. No pneumothorax. No worrisome pulmonary nodules. MEDIASTINUM AND HILAR STRUCTURES: No masses or contour abnormalities. HEART AND VASCULAR STRUCTURES: Borderline cardiomegaly BONES: No acute findings. HARDWARE: None in the chest. OTHER: No other significant finding. IMPRESSION: Trace left pleural fluid. Borderline cardiomegaly. No acute infiltrates TECHNICAL DOCUMENTATION: JOB ID: [id number] [employer]- All Rights Reserved Reading location - IP/workstation name: [email or web address]
[2017-12-24] MEDS ORDERED: IPRATROPIUM/ALBUTEROL 0.5-2.5 MG/3 ML AMPUL NEB ONE (16:03)
--- NOTE | 2017-12-24 16:04 | ER Document Report ---
ED General - General Chief Complaint: General Weakness Stated Complaint: WEAKNESS,SHORT OF BREATH Time Seen by Provider: 12/24/17 14:53 Mode of Arrival: Ambulatory Information source: Patient Notes: This is an 82-year-old man with a history of COPD, hypertension, diabetes (diet- controlled), atrial fibrillation (Coumadin), legally blind. Presents to the emergency room with shortness of breath, dyspnea on exertion. Patient sugars have been noted to be elevated. Patient denies chest pain. TRAVEL OUTSIDE OF THE [place] IN LAST 30 DAYS: No - HPI Onset: Last week Onset/Duration: Gradual Quality of pain: No pain Severity: None Pain Level: Denies Associated symptoms: Shortness of breath. denies: Chest pain, Nonproductive cough, Productive cough, Fever Exacerbated by: Movement Relieved by: Remaining still Similar symptoms previously: Yes Recently seen / treated by doctor: No - Related Data Allergies/Adverse Reactions: Penicillins Allergy (Unknown, Verified 12/24/17 14:27) Past Medical History - General Information source: Patient - Social History Smoking Status: Former Smoker Cigarette use (# per day): No Chew tobacco use (# tins/day): No Frequency of alcohol use: None Drug Abuse: None Lives with: Alone Family History: Reviewed & Not Pertinent Patient has suicidal ideation: No Patient has homicidal ideation: No - Past Medical History Cardiac Medical History: Reports: Hx Atrial Fibrillation, Hx Hypercholesterolemia, Hx Hypertension Pulmonary Medical History: Reports: Hx Asthma, Hx COPD Neurological Medical History: Denies: Hx Migraine Endocrine Medical History: Reports: Hx Diabetes Mellitus Type 2 Renal/ Medical History: Reports: Hx Kidney Stones. Denies: Hx Peritoneal Dialysis GI Medical History: Denies: Hx Crohn's Disease, Hx Ulcerative Colitis Musculoskeletal Medical History: Denies Hx Fibromyalgia Psychiatric Medical History: Reports: Hx Depression Traumatic Medical History: Denies: Hx Traumatic Brain Injury Infectious Medical History: Denies: Hx C-Diff, Hx HIV Review of Systems - Review of Systems Constitutional: denies: Chills, Fever EENT: No symptoms reported Cardiovascular: See HPI Respiratory: See HPI Gastrointestinal: No symptoms reported Genitourinary: No symptoms reported Male Genitourinary: No symptoms reported Musculoskeletal: No symptoms reported Skin: No symptoms reported Hematologic/Lymphatic: No symptoms reported Neurological/Psychological: No symptoms reported Physical Exam - Vital signs Vitals: Temp Pulse Resp BP Pulse Ox 98.6 F 81 20 142/69 H 98 12/24/17 14:34 12/24/17 14:34 12/24/17 14:34 12/24/17 14:34 12/24/17 14:34 Notes: Physical exam: GENERAL: Patient is alert and oriented x3, he is sitting up in the chair, he is in no acute distress HEAD: Atraumatic, normocephalic. EYES: Pupils equal round and reactive to light, extraocular movements intact, sclera anicteric, conjunctiva are normal. ENT: TMs normal, nares patent, oropharynx clear without exudates. Moist mucous membranes. NECK: Normal range of motion, supple without obvious mass or JVD. LUNGS: Scattered wheezing HEART: Regular rate and rhythm without murmurs, rubs or gallops. ABDOMEN: Soft, normoactive bowel sounds. No tenderness to palpation. No guarding, no rebound. No masses appreciated. EXTREMITIES: 1+ lower extremity edema NEUROLOGICAL: Cranial nerves II through XII grossly intact. Normal speech, moving all extremities. PSYCH: Normal mood, normal affect. SKIN: Warm, Dry, normal turgor, no rashes or lesions noted. Course - Re-evaluation Re-evalutation: 12/24/17 19:21 Note: Patient was given IV Lasix and has urinated several times and states his symptoms are much improved. The patient is cared for by his neighbor and she states that his food is had a lot of salt in it lately. I think the story is good for dietary indiscretion. He denies any recent chest pain or sudden onset of shortness of breath. He was given Lasix as mentioned above and is improved. He does want to go home. He does have an appointment with his doctor on Wednesday and I will give him a short course of Lasix. We will give him a copy of today's labs as well as x-ray report for him to bring to his primary care doctor on Wednesday. - Vital Signs Vital signs: Temp Pulse Resp BP Pulse Ox 98.4 F 94 16 144/68 H 97 12/24/17 19:39 12/24/17 19:39 12/24/17 19:39 12/24/17 19:39 12/24/17 19:39 - Laboratory Result Diagrams: 12/24/17 15:09 12/24/17 15:09 Laboratory results interpreted by me: 12/24/17 12/24/17 12/24/17 15:09 15:09 15:09 RBC 4.34 L MCV 100 H MCH 33.5 H RDW 16.1 H Plt Count 129 L Lymphocytes % 10.3 L PT BUN 30 H Est GFR (Non-Af Amer) 58 L Glucose 268 H Hemoglobin A1c % 8.1 H NT-Pro-B Natriuret Pep Urine Protein Urine Glucose (UA) Urine Blood 12/24/17 12/24/17 12/24/17 15:09 16:42 17:19 RBC MCV MCH RDW Plt Count Lymphocytes % PT 25.9 H BUN Est GFR (Non-Af Amer) Glucose Hemoglobin A1c % NT-Pro-B Natriuret Pep 5930 H Urine Protein 30 H Urine Glucose (UA) >=500 H Urine Blood LARGE H - Diagnostic Test Radiology reviewed: Image reviewed, Reports reviewed - No obvious infiltrates, cardiomegaly stable Discharge - Discharge Clinical Impression: Shortness of breath Condition: Stable Disposition: HOME, SELF-CARE Additional Instructions: As we discussed, I think your symptoms are due to mild fluid overload from dietary indiscretion. I want you to cut down on the amount of salt that you take. Take the Lasix daily in the morning as prescribed. Follow-up with your doctor on Wednesday: Bring a copy of today's labs and x-ray report with you when you go. Return to the emergency room for worsening shortness of breath or any concerns or getting worse. Prescriptions: Furosemide [Lasix 20 mg Tablet] 20 mg PO QAM #7 tablet Potassium Chloride 10 meq PO DAILY #7 tablet.er Referrals: ARLEN NIELSEN MD [Primary Care Provider] - 12/27/17
[2017-12-24 16:13] LABS: CREATINE KINASE MB 3.66 ng/mL (<4.55); TROPONIN I 0.03 ng/mL
[2017-12-24 17:12] LABS: INTERNATIONAL RATION (INR) 2.24; PROTHROMBIN TIME 25.9 SEC (11.4-15.4)
[2017-12-24 17:43] LABS: APPEARANCE,URINE CLEAR; BILIRUBIN,URINE NEGATIVE (NEGATIVE); COLOR,URINE YELLOW; GLUCOSE, URINE >=500 mg/dL (NEGATIVE); KETONES,URINE NEGATIVE (NEGATIVE); LEUKOCYTE ESTERASE,URINE NEGATIVE (NEGATIVE); NITRITE,URINE NEGATIVE (NEGATIVE); PROTEIN,URINE 30 mg/dL (NEGATIVE); URINE SPECIFIC GRAVITY 1.015; UROBILINOGEN,URINE NEGATIVE mg/dL (<2.0)
[2017-12-24] MEDS ORDERED: FUROSEMIDE INJ/PF 20 MG/2 ML SDV IV ONE (17:56)
[2017-12-24 19:48] VITALS: BP 144/68
--- NOTE | 2017-12-25 19:29 | EKG REPORT ---
SEVERITY:- ABNORMAL ECG - ATRIAL FIBRILLATION, V-RATE 60-106 RIGHT BUNDLE BRANCH BLOCK : Confirmed by: Christian Madden 25-Dec-2017 19:29:08
== END 2017-12-24 19:45 | disposition home or self-care (01) ==
LOC: ER 14:27
DX: J44.9 Chronic obstructive pulmonary disease, unspecified (principal); I11.9 Hypertensive heart disease without heart failure; R60.0 Localized edema; R06.02 Shortness of breath; E11.9 Type 2 diabetes mellitus without complications; I48.91 Unspecified atrial fibrillation; Z79.01 Long term (current) use of anticoagulants; Z88.0 Allergy status to penicillin; Z87.891 Personal history of nicotine dependence
CPT/HCPCS: 93005; 94640; 99285; 96374; 36415; 82553; 82550; 85025; 85610; 80053; 81001; 84484; 83036; 83880; 71046; 93010; J1940; A9270; J7620